=== PATIENT | male | born 1940 | race Caucasian/White ===

== ENCOUNTER 2017-03-17 07:46 | Inpatient (IN) | payer OTHER, MEDICARE ==
[~2017-03-17 07:46] MED LIST: Dermabond Prineo 1 Tube ONE
[2017-03-17] MEDS: Lactated Ringers 1,000 ML IV SCH ×3 (08:51→20:07)
[2017-03-17] MEDS ORDERED: Lidocaine 2% 5 ML SDV ONE ×2 (09:16→09:22)
[2017-03-17] MEDS ORDERED: Propofol 200 MG/20 ML SDV ONE ×2 (09:16→09:20)
[2017-03-17] MEDS ORDERED: fentaNYL 250 MCG/5 ML SDV ONE (09:17)
[2017-03-17] MEDS ORDERED: Midazolam 1 MG/ML 2 ML SDV ONE (09:17)
[2017-03-17] MEDS ORDERED: Ketorolac 30 MG/ML SDV ONE (09:22)
[2017-03-17] MEDS ORDERED: Ondansetron 4 MG/2 ML SDV ONE (09:22)
[2017-03-17] MEDS ORDERED: Neostigmine Methylsulfate 1 MG/ML 5 ML Syringe ONE (09:22)
[2017-03-17] MEDS ORDERED: ePHEDrine 50 MG/ML SDV ONE (09:33)
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
[2017-03-17] MEDS ORDERED: ceFAZolin 2 GM in Premix Bag 1 BAG IV ONE (10:00)
[2017-03-17] MEDS ORDERED: fentaNYL 100 MCG/2 ML SDV IVPUSH PRN (10:54)
[2017-03-17] MEDS ORDERED: HYDROmorphone 2 MG/ML Syringe IVPUSH ONE (11:20)
--- NOTE | 2017-03-17 11:46 | PCM.OPNOTE ---
- General Post-Op/Procedure Note Date of Surgery/Procedure: 03/17/17 Operative Procedure(s): right anterior total hip arthroplasty Findings: severe OA Pre Op Diagnosis: right hip severe osteoarthritis Post-Op Diagnosis: same Anesthesia Technique: General ET Tube, Spinal Primary Surgeon: Zenon Valdivia Mai Pilot Boat Operator: Raina Cochran Pathology: femoral head EBL in mLs: 300 Complications: none Condition: Good
[2017-03-17] MEDS ORDERED: Morphine 10 MG/ML Syringe IVPUSH PRN (11:54)
[2017-03-17] MEDS ORDERED: Acetaminophen/HYDROcodone 325-5 MG Tab PO PRN (11:54)
[2017-03-17] MEDS ORDERED: Ondansetron 4 MG/2 ML SDV IV PRN (11:54)
[2017-03-17] MEDS ORDERED: Bisacodyl 10 MG Supp RECTAL PRN (11:54)
[2017-03-17] MEDS ORDERED: diphenhydrAMINE 25 MG Cap PO PRN (11:54)
--- NOTE | 2017-03-17 12:39 | PCM.POSTAN ---
POST ANESTHESIA ASSESSMENT - MENTAL STATUS Mental Status: Alert, Oriented - VITAL SIGNS Pulse Rate: 89 SaO2: 97 (room air) Resp Rate: 13 Blood Pressure: 118/67 - RESPIRATORY Respiratory Status: respiratory rate WNL, Airway Patent, O2 Saturation Stable - CARDIOVASCULAR CV Status: Pulse Rate WNL, Blood Pressure Stable - GASTROINTESTINAL GI Status: No Symptoms - PAIN Pain Score: 0 - POST OP HYDRATION Hydration Status: Adequate & Stable
--- NOTE | 2017-03-17 13:50 | OR ---
SURGEON: Zenon Jiménez MD DATE OF PROCEDURE: 03/17/2017 RETAIL MANAGER IN TRAINING: WENDY Harris PREOPERATIVE DIAGNOSIS: Right hip severe osteoarthritis. POSTOPERATIVE DIAGNOSES: Right hip severe osteoarthritis. OPERATION PERFORMED: Right anterior total hip arthroplasty. ANESTHESIA: Spinal and general. COMPLICATIONS: None. ESTIMATED BLOOD LOSS: 300 mL. SPECIMENS: Femoral head. IMPLANT: Arturo Continuum trabecular metal shell with cluster holes, 60 mm outer diameter, the Vicacit-E neutral liner, 36 mm inner diameter, one 6.5 x 30 mm length bone screw, M/L Taper, cementless standard offset size 13.5 femoral stem, BIOLOX delta ceramic femoral head 36 mm diameter, 0 neck length. WENDY Cochran was instrumental in case with retraction, closing and reducing the hip. INDICATIONS: The patient is a 76-year-old male with severe hip arthritis. He has previously undergone left hip replacement. He wished to undergo total hip replacement. He has failed conservative management due to modification therapy and has chronic pain on a daily basis hindering activities and ADLs. He understands the risks, benefits, potential complications of the procedure including, but not limited to infection, neurovascular injury, continued pain, DVT, PE, stroke, TX, , dislocation, fracture, leg-length discrepancy, deep infection, and he wished to proceed. DESCRIPTION OF PROCEDURE: The patient was seen in the preoperative area. Operative site was marked. The patient was transferred to the operating room. Spinal anesthetic was given. He was placed supine on the Marino table and general anesthesia was induced. Endotracheal tube was placed. He received preop antibiotics with Ancef and also 2 g of TXA. Legs were placed in leg bars with narrow perineal post and the right hip was prepped and draped in usual sterile fashion using alcohol followed by ChloraPrep with Ioban covering. A formal time-out was taken, identifying the correct patient, procedure, and extremity. A 10 cm incision starting just laterally ASIS going obliquely down. Femur was made. Dissection was carried down to subcutaneous tissues. Hemostasis was obtained. The fascia overlying the TFL was opened. The interval between TFL and sartorius and deep between the abductors and rectus was opened. A deep German tractor was placed. The vastus lateralis fascia was opened and the anterior vessels were coagulated. The capsule was held and tagged with two fiber wires and retractors placed deep in the hip joint. The neck was cut with saddle region about 1 to 1.5 cm above the lesser trochanter and the head was removed. There was severe osteoarthritis with large osteophytes obliterating the entire hip, but no cartilage remaining. Anterior and posterior retractors were placed. Inferior capsule was released and the iliopsoas tendon was left alone. The remnants of the labrum primarily anterior and far posterior inferiorly were removed as well as some of the inferior capsule that was thickened. The fovea was completely obliterated with osteophytes. Acetabular line and osteophytes anteriorly were also removed. The head measured approximately 53 to 55 mm. The bed was planed under fluoroscopic control to make sure the pelvis was level and then sequential reaming from 53 mm up to 59 mm was performed. This had excellent fit and fill of the hip, and then under fluoroscopic control after irrigating continuum trabecular shell cluster holes, the screw straight superior was impacted in 10 degrees of anteversion and 45 degrees of abduction and has had excellent press fit. Once straight superior bone screw was placed after drilling and then after irrigating and drying the neutral liner was impacted. Attention was then paid to the femur. The leg was externally rotated, medial capsule was released. He was then abducted and extended. Femoral lift was placed. The superior capsule obturator internus and piriformis were released taking care to preserve the obturator externus. The central canal finder was utilized and sequential broaching based on preoperative templating with M/L Taper size standard was performed with a starter rasp up to size 13.5. Calcar planer was utilized to lower it about 2-3 mm. Trial was reduced and with printed overlay technique with fluoroscopy on the other hip, it showed equal leg lengths, but the offset to be slightly decreased, which was designed because the other hip had much higher increased offset. There was no Shuck to the hip and was stable in range of motion. Hip was then dislocated. The trial component was removed. The hip was irrigated. Standard offset, size 13.5, was impacted following the [place] version. It had excellent press-fit going down the same length as the trial and so a 36 mm diameter head and 0 neck length was impacted. Hip was then reduced. Printed overlay technique once again showed the same with equal leg lengths and slightly decreased offset. The two tag sutures were tied together. The hip was irrigated again and the fascia closed with #1 Vicryl. Subcutaneous tissues were closed with 2-0 Stratra-Fix. Skin was closed with a running 4-0 Monocryl with Dermabond tape and Aquacel dressing was placed. The patient was extubated to the operating room and transferred to recovery room in stable condition. Sponge and needle counts were correct at the end of the case. There were no complications. PLAN: The patient will be given postoperative protocol with weightbearing as tolerated and aspirin for DVT prophylaxis. RAMEZ BANUELOS /[id number]
[2017-03-17] MEDS: Acetaminophen 500 MG Tab PO PRN (16:14)
[2017-03-17] MEDS: ceFAZolin 2 GM in Premix Bag 1 BAG IV SCH (18:47)
[2017-03-17] MEDS ORDERED: Sodium Chloride 0.9% 2.5 ML Syringe FLUSH PRN (19:47)
[2017-03-17] MEDS ORDERED: Sodium Chloride 0.9% 10 ML Syringe FLUSH PRN (19:47)
[2017-03-17] MEDS: Docusate Sodium 100 MG Cap PO SCH (20:05)
[2017-03-18] MEDS: ceFAZolin 2 GM in Premix Bag 1 BAG IV SCH (01:54)
--- NOTE | 2017-03-18 07:17 | PCM.SN ---
- Free Text/Narrative Note: subjective: hip doing very well. able to ambulate without help to bathroom. has ambulated in halls. is having difficulty urinating and had to be straight cathed. tolerating PO well. pain controlled with tylenol. objective: afebrile, vital signs stable dressing clean/dry/intact with no drainage. minimal swelling in thigh. normal sensation and motor distal with no peripheral edema. palp pedal pulse HGB 11.9 A/P: POD #1 right MARIYA - full weight bearing with walker, PT - aspirin for DVT prophylaxis - to home today if able to urinate
[2017-03-18] MEDS ORDERED: ATENOLOL PO SCH (09:00)
[2017-03-18] MEDS ORDERED: CHLORTHALIDONE PO SCH (09:00)
[2017-03-18] MEDS: Aspirin 325 MG Tab PO SCH ×2 (09:14→20:23)
[2017-03-18] MEDS: Acetaminophen 500 MG Tab PO PRN (09:14)
[2017-03-18] MEDS: Chlorthalidone 25 MG Tab PO SCH (09:14)
[2017-03-18] MEDS: Atenolol 50 MG Tab PO SCH (09:14)
[2017-03-18] MEDS: Docusate Sodium 100 MG Cap PO SCH ×2 (09:14→20:23)
--- NOTE | 2017-03-18 15:30 | PCM48HPAN ---
Post Anesthesia Note - EVALUATION WITHIN 48HRS OF ANESTHETIC Vital Signs in Normal Range: Yes Patient Participated in Evaluation: Yes Respiratory Function Stable: Yes Airway Patent: Yes Cardiovascular Function Stable: Yes Hydration Status Stable: Yes Pain Control Satisfactory: Yes Nausea and Vomiting Control Satisfactory: Yes Mental Status Recovered: Yes
[2017-03-18] MEDS: Aluminum Hydroxide/Magnesium Hydroxide/Simethicone Susp 30 ML Cup PO PRN ×2 (15:37→22:10)
[2017-03-19] MEDS: Chlorthalidone 25 MG Tab PO SCH (08:28)
[2017-03-19] MEDS: Docusate Sodium 100 MG Cap PO SCH (08:28)
[2017-03-19] MEDS: Acetaminophen 500 MG Tab PO PRN (08:28)
[2017-03-19 08:30] VITALS: BP 121/65
[2017-03-19] MEDS: Atenolol 50 MG Tab PO SCH (08:30)
[2017-03-19] MEDS: Aspirin 325 MG Tab PO SCH (08:30)
--- NOTE | 2017-03-19 08:44 | PCM.SN ---
- Free Text/Narrative Note: subjective: hip doing very well. He is able to ambulate with minimal issues. He has been only able to urinate small amount and feels retention and difficulty starting to void. He was straight cathetered yesterday and Newton was placed overnight. objective: afebrile, vital signs stable dressing clean/dry/intact with no drainage. minimal swelling in thigh. normal sensation and motor distal with no peripheral edema. palp pedal pulse Newton in place with normal appearing clear urine HGB 11.4 A/P: POD #2 right MARIYA with urinary retention - full weight bearing with walker, PT - aspirin for DVT prophylaxis - Dr. Barr was called who recommended leaving the Newton in and he'll follow- up with the patient in 2 days in clinic. - To home today
--- NOTE | 2017-03-19 08:46 | PCM.DCSUM1 ---
Discharge Summary - Hospital Course Brief History: Patient is admitted for elective right total hip arthroplasty - Discharge Data Discharge Date: 03/19/17 Discharge Disposition: Home, Self-Care 01 Condition: Good - Patient Summary/Data Operative Procedure(s) Performed: right anterior total hip arthroplasty Consults: Consultations 03/17/17 11:54 PT Evaluation and Treatment [CONS] Routine Hospital Course: Patient was admitted for total of arthroplasty. Postoperatively he was managed for her pain was controlled and his diet was advanced. He had minimal pain. He was kept on aspirin for DVT prophylaxis. He had difficulty urinating and over the course of 2 days he was straight catheter twice and a Newton was placed. The urologist was consulted who recommended leaving the Newton in and follow-up in his clinic in 2 days. Patient was was subsequently discharged with weightbearing as tolerated on aspirin for DVT prophylaxis. His hemoglobin remained stable throughout the hospitalization - Patient Instructions Diet: Usual Diet as Tolerated Activity: Apply Ice, Full Weight Bearing Driving: Do Not Drive Showering/Bathing: May Shower Wound/Incision Care: Do NOT Change Dressing Notify Provider of: Fever, Swelling and Redness, Drainage Other/Special Instructions: Leave Newton in and drain bag as needed - Discharge Plan Prescriptions/Med Rec: Acetaminophen/HYDROcodone [Stella 325-5 MG] 1 - 2 tab PO Q4H PRN #60 tablet PRN Reason: Pain Aspirin [Ecotrin] 325 mg PO BID #60 tab.ec Docusate Sodium [Colace] 100 mg PO BID #30 cap Home Medications: Home Meds Aspirin 1 - 2 tab PO ASDIRECTED PRN 03/16/17 [History] Atenolol/Chlorthalidone [Tenoretic 50 Tablet] 1 tab PO DAILY 03/16/17 [History] Multivitamin [Multivitamins] 1 tab PO DAILY 03/16/17 [History] Acetaminophen/HYDROcodone [Stella 325-5 MG] 1 - 2 tab PO Q4H PRN #60 tablet 03/19 [Rx] Aspirin [Ecotrin] 325 mg PO BID #60 tab.ec 03/19/17 [Rx] Docusate Sodium [Colace] 100 mg PO BID #30 cap 03/19/17 [Rx] Patient Handouts: Acetaminophen; Hydrocodone tablets or capsules, Total Hip Replacement, Care After, Aspirin, ASA oral tablets, Docusate capsules Referrals: Sumit Barr MD [Physician] - 03/21/17 1:00 pm Raina Cochran PA [Physician Flanging Machine Operator] - 03/29/17 9:00 am - Discharge Summary/Plan Comment DC Time >30 min.: No - Patient Data Vitals - Most Recent: Last Vital Signs Temp 36.8 C 03/19/17 08:00 Pulse 85 03/19/17 08:30 Resp 16 03/19/17 08:00 BP 121/65 03/19/17 08:30 Pulse Ox 94 L 03/19/17 08:00 Weight - Most Recent: 97.522 kg I&O - Last 24 hours: Intake & Output 03/18/17 03/19/17 03/19/17 22:59 06:59 14:59 Intake Total 586 150 Output Total 1575 1100 Balance -989 -950 Lab Results - Last 24 hrs: Laboratory Results - last 24 hr 03/19/17 Range/Units 04:17 Hgb 11.4 L (13.0-17.0) g/dL Hct 34.7 L (38.0-50.0) % Med Orders - Current: Current Medications Acetaminophen (Tylenol Extra Strength) 0 mg PO Q6H PRN PRN Reason: pain Last Admin: 03/19/17 08:28 Dose: 500 mg Hydrocodone Bitart/Acetaminophen (Stella 325-5 Mg) 1 - 2 tab PO Q4H PRN PRN Reason: Pain Al Hydroxide/Mg Hydroxide (Mag-Al Plus) 30 ml PO Q4H PRN PRN Reason: indigestion Last Admin: 03/18/17 22:10 Dose: 30 ml Aspirin (Aspirin) 325 mg PO BID [facility] Last Admin: 03/19/17 08:30 Dose: 325 mg Atenolol (Tenormin) 50 mg PO DAILY [facility] Last Admin: 03/19/17 08:30 Dose: 50 mg Bisacodyl (Dulcolax) 10 mg RECTAL DAILY PRN PRN Reason: Constipation Chlorthalidone (Chlorthalidone) 25 mg PO DAILY [facility] Last Admin: 03/19/17 08:28 Dose: 25 mg Diphenhydramine HCl (Benadryl) 25 - 50 mg PO Q6H PRN PRN Reason: Itching Docusate Sodium (Colace) 100 mg PO BID [facility] Last Admin: 03/19/17 08:28 Dose: 100 mg Lactated Ringer's (Ringers, Lactated) 1,000 mls @ 100 mls/hr IV ASDIRECTED [facility] Last Admin: 03/17/17 20:07 Dose: 100 mls/hr Morphine Sulfate (Morphine) 1 - 3 mg IVPUSH Q3H PRN PRN Reason: Pain Ondansetron HCl (Zofran) 4 mg IV Q6HR PRN PRN Reason: NAUSEA/VOMITING Sodium Chloride (Saline Flush) 10 ml FLUSH ASDIRECTED PRN PRN Reason: Keep Vein Open Sodium Chloride (Saline Flush) 2.5 ml FLUSH ASDIRECTED PRN PRN Reason: Keep Vein Open Discontinued Medications Ephedrine Sulfate (Ephedrine Sulfate) Confirm Administered Dose 50 mg .ROUTE .STK-MED ONE Stop: 03/17/17 09:34 Fentanyl (Sublimaze) Confirm Administered Dose 250 mcg .ROUTE .STK-MED ONE Stop: 03/17/17 09:18 Fentanyl (Sublimaze) 50 mcg IVPUSH Q5M PRN PRN Reason: Pain (severe 7-10) Stop: 03/18/17 10:54 Glycopyrrolate () Confirm Administered Dose 1 mg .ROUTE .STK-MED ONE Stop: 03/17/17 09:23 Hydromorphone HCl (Dilaudid) 0 mg IVPUSH ONETIME ONE Stop: 03/17/17 11:21 Last Admin: 03/17/17 16:35 Dose: Not Given Cefazolin Sodium/Dextrose 2 gm (/ Premix) 50 mls @ 50 mls/hr IV ONETIME ONE Stop: 03/17/17 10:59 Last Admin: 03/17/17 16:34 Dose: Not Given Cefazolin Sodium/Dextrose 2 gm (/ Premix) 50 mls @ 100 mls/hr IV Q8H [facility] Stop: 03/18/17 02:29 Last Admin: 03/18/17 01:54 Dose: 100 mls/hr Ketorolac Tromethamine (Toradol) Confirm Administered Dose 30 mg .ROUTE .STK- MED ONE Stop: 03/17/17 09:23 Lidocaine (Xylocaine-Mpf 2%) Confirm Administered Dose 10 ml .ROUTE .STK-MED ONE Stop: 03/17/17 09:17 Lidocaine (Xylocaine-Mpf 2%) Confirm Administered Dose 5 ml .ROUTE .STK-MED ONE Stop: 03/17/17 09:23 Midazolam HCl (Versed 1 Mg/Ml) Confirm Administered Dose 2 mg .ROUTE .STK-MED ONE Stop: 03/17/17 09:18 Neostigmine Methylsulfate (Neostigmine) Confirm Administered Dose 5 mg .ROUTE .STK-MED ONE Stop: 03/17/17 09:23 Non-Formulary Medication (Atenolol/Chlorthalidone [Tenoretic 50 Tablet]) 1 tab PO DAILY BERNABE Octyl Cyanoacrylate (Dermabond Prineo) 1 applic .ROUTE .STK-MED ONE Stop: 03/17/17 07:25 Ondansetron HCl (Zofran) Confirm Administered Dose 4 mg .ROUTE .STK-MED ONE Stop: 03/17/17 09:23 Propofol (Diprivan 20 Ml) Confirm Administered Dose 400 mg .ROUTE .STK-MED ONE Stop: 03/17/17 09:17 Propofol (Diprivan 20 Ml) Confirm Administered Dose 200 mg .ROUTE .STK-MED ONE Stop: 03/17/17 09:21 Rocuronium [place] (Zemuron) Confirm Administered Dose 50 mg .ROUTE .STK-MED ONE Stop: 03/17/17 09:23 Tranexamic Acid (Cyklokapron) 2,000 mg IV ONETIME ONE Stop: 03/17/17 10:01 Last Admin: 03/17/17 16:35 Dose: Not Given Tranexamic Acid (Cyklokapron) Confirm Administered Dose 2,000 mg .ROUTE .STK- MED ONE Stop: 03/17/17 07:29 *Q Meaningful Use (DIS) - VTE *Q VTE Criteria *Q: - Stroke *Q Stroke Criteria *Q: - AMI *Q AMI Criteria *Q:
[2017-03-19] MEDS: Aluminum Hydroxide/Magnesium Hydroxide/Simethicone Susp 30 ML Cup PO PRN (11:18)
--- NOTE | 2017-03-21 13:19 | CR ---
EXAMINATION: Right hip HISTORY: MARIYA COMPARISON: 01/10/2017 TECHNIQUE: 3 fluoroscopic images provided FINDINGS/IMPRESSION: Operative control films demonstrate placement of right total hip hardware in go od position and alignment.
== END 2017-03-19 11:30 | disposition home or self-care (01) | DRG 470 ==
LOC: MW.MS 07:46
PROVIDERS: ADMIT Orthopaedic Surgery; ATTEND Orthopaedic Surgery
PROC: 0SR903A Replacement of Right Hip Joint with Ceramic Synthetic Substitute, Uncemented, Open Approach (ICD-10-PCS; principal; 2017-03-17)
DX: M16.11 Unilateral primary osteoarthritis, right hip (principal); R33.8 Other retention of urine; I10 Essential (primary) hypertension; Z90.81 Acquired absence of spleen; Z87.891 Personal history of nicotine dependence
CPT/HCPCS: 01214; 36415; 76000; 76000-26; 85014; 85018; 86850; 86900; 86901; 88305; 88311; 97110-GP; 97161-GP; 97530-GP; A9270-GY; C1713; C1776; J0690; J1885; J2250; J2405; J2704; J3010; J7120

== ENCOUNTER 2021-11-12 10:53 | Emergency (ER) | payer OTHER, MEDICARE ==
[2021-11-12] MEDS ORDERED: Furosemide 40 MG/4 ML VIAL IVPUSH STA (11:02)
[2021-11-12 11:47] LABS: BLOOD UREA NITROGEN,BUN 17 mg/dL (7.0-18.0); CARBON DIOXIDE,CO2 27.5 mmol/L (21.0-32.0); CHLORIDE,CL 105 mmol/L (98-107); GLUCOSE RANDOM 100 mg/dL (74-106); POTASSIUM,K 4.3 mmol/L (3.5-5.1); SODIUM,NA 142 mmol/L (136-148)
[2021-11-12 12:43] VITALS: BP 132/67; PULSE 104
== END 2021-11-12 12:28 | disposition home or self-care (01) ==
LOC: MW.ED 10:53
DX: R06.02 Shortness of breath (principal); I11.0 Hypertensive heart disease with heart failure; I50.9 Heart failure, unspecified; K21.9 Gastro-esophageal reflux disease without esophagitis; Z79.899 Other long term (current) drug therapy
CPT/HCPCS: 36415; 71045; 80053; 81001; 83880; 84484; 85025; 93005; 96374; 99285; J1940

== ENCOUNTER 2023-03-14 08:24 | Observation (INO) | payer OTHER ==
[2023-03-14] MEDS ORDERED: Naloxone 0.4 MG/ML SDV IVPUSH PRN (08:25)
[2023-03-14] MEDS ORDERED: Sodium Chloride 0.9% 10 ML Syringe FLUSH PRN (08:25)
[2023-03-14] MEDS ORDERED: Sodium Chloride 0.9% 2.5 ML Syringe FLUSH PRN (08:25)
[2023-03-14] MEDS: Morphine 4 MG/ML Syringe IVPUSH ONE ×2 (08:38→08:40)
[2023-03-14 08:51] LABS: BASOPHILS ABSOLUTE AUTO 0.1 K/uL (0.0-0.1); BASOPHILS PERCENT AUTO 0.4 % (0.0-1.5); EOSINOPHILS ABSOLUTE AUTO 0.2 K/uL (0.0-0.7); EOSINOPHILS PERCENT AUTO 1.8 % (0.0-7.0); HEMATOCRIT 39.7 % (38.0-50.0); HEMOGLOBIN 13.9 g/dL (13.0-17.0); LYMPHOCYTES ABSOLUTE AUTO 2.2 K/uL (0.6-2.4); LYMPHOCYTES PERCENT AUTO 19.7 % (16.0-40.0); MEAN CORPUSCULAR HEMOGLOBIN 31.4 pg (27.0-32.0); MEAN CORPUSCULAR VOLUME 89.6 fL (80.0-98.0); MONOCYTES ABSOLUTE AUTO 1.3 K/uL (0.0-0.8); MONOCYTES PERCENT AUTO 11.3 % (0.0-15.0); NEUTROPHILS ABSOLUTE AUTO 7.5 K/uL (1.4-5.7); NEUTROPHILS PERCENT AUTO 66.8 % (48.0-80.0); NRBC ABSOLUTE 0 K/uL; PLATELET COUNT,PLT 279 K/uL (150-400); RED BLOOD CELL COUNT 4.43 M/uL (4.50-5.90); WHITE BLOOD CELL COUNT,WBC 11.29 K/uL (4.0-11.0)
[2023-03-14 09:13] LABS: LACTIC ACID 1.8 mmol/L (0.4-2.0)
[2023-03-14 09:22] LABS: A/G RATIO 0.7 (0.9-1.6); ALBUMIN 3.5 g/dL (3.4-5.0); BILIRUBIN TOTAL 1.2 mg/dL (0.2-1.0); CALCIUM 9.9 mg/dL (8.5-10.1); CARBON DIOXIDE,CO2 31.3 mmol/L (21.0-32.0); CREATININE 1.7 mg/dL (0.8-1.3); EST CRCL DRUG DOSING (CG) 35.19 mL/min; MAGNESIUM 2.4 mg/dL (1.8-2.4); PROTEIN TOTAL,TP 8.4 g/dL (6.4-8.2)
[2023-03-14 09:33] LABS: INR 1.02 (0.86-1.11)
[2023-03-14] MEDS ORDERED: Potassium Chloride 10% 20 MEQ/15 ML Soln 15 ML UD Cup PO ONE (09:50)
[2023-03-14] MEDS ORDERED: Sodium Chloride 0.9% 500 ML IV ONE (10:00)
[2023-03-14] MEDS: Potassium Chloride 100 ML IV SCH ×2 (10:07→12:18)
[2023-03-14] MEDS ORDERED: Sodium Chloride 0.9% 500 ML IV SCH (10:15)
[2023-03-14] MEDS ORDERED: Lidocaine 4% 1 each Patch TOP STA (11:58)
[2023-03-14] MEDS ORDERED: Acetaminophen 325 MG Tab PO PRN (13:11)
[2023-03-14] MEDS ORDERED: oxyCODONE 5 MG Tab PO PRN (13:11)
[2023-03-14] MEDS ORDERED: Docusate Sodium 100 MG Cap PO PRN (13:11)
[2023-03-14] MEDS ORDERED: Polyethylene Glycol 3350 Powder 17 GM Packet PO PRN (13:11)
[2023-03-14] MEDS ORDERED: Ondansetron 4 MG Tab.DIS PO PRN (13:11)
[2023-03-14] MEDS: Enoxaparin 40 MG/0.4 ML Syringe SUBCUT SCH (15:15)
[2023-03-14] MEDS: Sodium Chloride 0.9% 1,000 ML IV SCH (16:29)
[2023-03-14 17:15] LABS: CALCIUM 9.1 mg/dL (8.5-10.1); CARBON DIOXIDE,CO2 36.4 mmol/L (21.0-32.0); CREATININE 1.6 mg/dL (0.8-1.3); EST CRCL DRUG DOSING (CG) 33.85 mL/min; POTASSIUM,K 2.5 mmol/L (3.5-5.1)
[2023-03-14] MEDS: Potassium Chloride 20 MEQ in Premix Bag 1 BAG IV SCH ×3 (19:13→23:59)
[2023-03-15] MEDS ORDERED: Ibuprofen 400 MG Tab PO PRN (00:54)
[2023-03-15] MEDS: Potassium Chloride 20 MEQ in Premix Bag 1 BAG IV SCH ×5 (02:10→14:30)
[2023-03-15] MEDS ORDERED: Benzocaine/Cetylpyridinium/Menthol Lozenge MUCMEM PRN (03:42)
[2023-03-15 05:48] LABS: BASOPHILS PERCENT AUTO 0.3 % (0.0-1.5); EOSINOPHILS ABSOLUTE AUTO 0.2 K/uL (0.0-0.7); EOSINOPHILS PERCENT AUTO 2.4 % (0.0-7.0); HEMOGLOBIN 11.7 g/dL (13.0-17.0); LYMPHOCYTES PERCENT AUTO 22.5 % (16.0-40.0); MEAN CORPUSCULAR HEMOGLOBIN 30.6 pg (27.0-32.0); MEAN CORPUSCULAR HGB CONC 33.4 g/dL (31.0-37.0); MEAN CORPUSCULAR VOLUME 91.6 fL (80.0-98.0); MONOCYTES ABSOLUTE AUTO 1.1 K/uL (0.0-0.8); MONOCYTES PERCENT AUTO 12.3 % (0.0-15.0); NEUTROPHILS ABSOLUTE AUTO 5.7 K/uL (1.4-5.7); NEUTROPHILS PERCENT AUTO 62.5 % (48.0-80.0); NRBC ABSOLUTE 0 K/uL; PLATELET COUNT,PLT 255 K/uL (150-400); RED BLOOD CELL COUNT 3.82 M/uL (4.50-5.90); WHITE BLOOD CELL COUNT,WBC 9.08 K/uL (4.0-11.0)
[2023-03-15 06:10] LABS: CARBON DIOXIDE,CO2 32.6 mmol/L (21.0-32.0); CREATININE 1.4 mg/dL (0.8-1.3); EST CRCL DRUG DOSING (CG) 38.69 mL/min; POTASSIUM,K 2.8 mmol/L (3.5-5.1)
[2023-03-15] MEDS: Sodium Chloride 0.9% 1,000 ML IV SCH (06:19)
[2023-03-15] MEDS ORDERED: Potassium Chloride 20 MEQ Tab.ER PO ONE (07:59)
[2023-03-15] MEDS: Potassium Chloride 20 MEQ Tab.ER PO SCH (08:08)
[2023-03-15] MEDS ORDERED: Sodium Chloride 0.9% 750 ML IV ONE (10:15)
[2023-03-15] MEDS: Multivitamin Tab PO SCH (10:31)
[2023-03-15] MEDS: Enoxaparin 40 MG/0.4 ML Syringe SUBCUT SCH (12:28)
[2023-03-15] MEDS: Aspirin 325 MG Tab.EC PO SCH (20:20)
[2023-03-16 08:31] LABS: CALCIUM 9.5 mg/dL (8.5-10.1); CARBON DIOXIDE,CO2 32.8 mmol/L (21.0-32.0); CREATININE 1.2 mg/dL (0.8-1.3); EST CRCL DRUG DOSING (CG) 45.14 mL/min; MAGNESIUM 2.3 mg/dL (1.8-2.4); POTASSIUM,K 3.7 mmol/L (3.5-5.1)
[2023-03-16] MEDS ORDERED: Furosemide 40 MG Tab PO SCH (09:00)
[2023-03-16] MEDS ORDERED: Furosemide 20 MG Tab PO SCH (09:00)
[2023-03-16] MEDS ORDERED: LYCOPENE 10 MG PO SCH (09:00)
[2023-03-16 09:01] VITALS: BP 130/60; PULSE 99
[2023-03-16] MEDS: Potassium Chloride 20 MEQ Tab.ER PO SCH (09:10)
[2023-03-16] MEDS: Multivitamin Tab PO SCH (09:11)
[2023-03-16] MEDS: Aspirin 325 MG Tab.EC PO SCH (09:11)
== END 2023-03-16 12:44 | disposition home or self-care (01) ==
LOC: MW.ED 08:24 → MW.MS 12:51
PROVIDERS: ADMIT Hospitalist; ATTEND Hospitalist
DX: E87.6 Hypokalemia (principal); N17.9 Acute kidney failure, unspecified; S82.892 Other fracture of left lower leg; I11.0 Hypertensive heart disease with heart failure; I50.9 Heart failure, unspecified; Z79.899 Other long term (current) drug therapy; Z79.82 Long term (current) use of aspirin; K21.9 Gastro-esophageal reflux disease without esophagitis; M19.90 Unspecified osteoarthritis, unspecified site
CPT/HCPCS: 36415; 71045; 73610; 73630; 73700; 80048; 80053; 83605; 83735; 83880; 84100; 84132; 85025; 85610; 85730; 93971; 96361; 96365; 96366; 96372; 99285; A9270; G0378; J1650; J3480; J3490; J7030; J7040; 93010; 99222; 99232; 99239; J2270

== ENCOUNTER 2023-04-11 23:24 | Observation (INO) | payer OTHER, MEDICARE ==
[2023-04-11] MEDS ORDERED: VANCOmycin 2 GM/400 ML 400 ML IV ONE (23:45)
[2023-04-12 00:04] LABS: BASOPHILS ABSOLUTE AUTO 0.1 K/uL (0.0-0.1); BASOPHILS PERCENT AUTO 0.5 % (0.0-1.5); EOSINOPHILS ABSOLUTE AUTO 0.4 K/uL (0.0-0.7); EOSINOPHILS PERCENT AUTO 2.4 % (0.0-7.0); HEMATOCRIT 37.3 % (38.0-50.0); HEMOGLOBIN 12.5 g/dL (13.0-17.0); LYMPHOCYTES ABSOLUTE AUTO 2.6 K/uL (0.6-2.4); LYMPHOCYTES PERCENT AUTO 17.5 % (16.0-40.0); MEAN CORPUSCULAR HEMOGLOBIN 31.3 pg (27.0-32.0); MEAN CORPUSCULAR HGB CONC 33.5 g/dL (31.0-37.0); MEAN CORPUSCULAR VOLUME 93.3 fL (80.0-98.0); MONOCYTES ABSOLUTE AUTO 1.3 K/uL (0.0-0.8); MONOCYTES PERCENT AUTO 8.6 % (0.0-15.0); NEUTROPHILS ABSOLUTE AUTO 10.6 K/uL (1.4-5.7); NRBC ABSOLUTE 0 K/uL; PLATELET COUNT,PLT 265 K/uL (150-400); WHITE BLOOD CELL COUNT,WBC 14.87 K/uL (4.0-11.0)
[2023-04-12 00:15] LABS: PTT,PARTIAL THROMBOPLSTIN TIME 27.2 SEC (23.9-30.7)
[2023-04-12 00:26] LABS: A/G RATIO 0.7 (0.9-1.6); ALBUMIN 3.2 g/dL (3.4-5.0); BILIRUBIN TOTAL 0.4 mg/dL (0.2-1.0); C-REACTIVE PROTEIN 2.5 mg/dL (0.00-0.90); CALCIUM 9.9 mg/dL (8.5-10.1); CARBON DIOXIDE,CO2 29.2 mmol/L (21.0-32.0); CREATININE 1.3 mg/dL (0.8-1.3); EST CRCL DRUG DOSING (CG) 46.01 mL/min; MAGNESIUM 1.9 mg/dL (1.8-2.4); POTASSIUM,K 4.1 mmol/L (3.5-5.1)
[2023-04-12] MEDS ORDERED: Acetaminophen 500 MG Tab PO ONE (00:48)
[2023-04-12] MEDS ORDERED: Sodium Chloride 0.9% 500 ML IV ONE (00:49)
[2023-04-12] MEDS ORDERED: Enoxaparin 100 MG/1 ML Syringe SUBCUT STA (00:59)
[2023-04-12] MEDS ORDERED: Ibuprofen 400 MG Tab PO ONE (02:16)
[2023-04-12] MEDS ORDERED: Ondansetron 4 MG/2 ML SDV IVPUSH PRN (03:31)
[2023-04-12] MEDS ORDERED: Albuterol/Ipratropium 3.0-0.5 MG/3 ML Neb Soln NEB PRN (03:31)
[2023-04-12] MEDS ORDERED: Sodium Chloride 0.9% 2.5 ML Syringe FLUSH PRN (03:31)
[2023-04-12] MEDS ORDERED: Sodium Chloride 0.9% 10 ML Syringe FLUSH PRN (03:31)
[2023-04-12] MEDS ORDERED: Polyethylene Glycol 3350 Powder 17 GM Packet PO PRN (03:31)
[2023-04-12] MEDS ORDERED: Acetaminophen 325 MG Tab PO PRN (03:31)
[2023-04-12] MEDS ORDERED: Enoxaparin 40 MG/0.4 ML Syringe SUBCUT SCH (03:45)
[2023-04-12] MEDS: Piperacillin/Tazobactam 3.375 GM in Sodium Chloride 0.9% 100 ML IV SCH ×3 (05:24→18:51)
[2023-04-12 06:19] LABS: BASOPHILS ABSOLUTE AUTO 0.1 K/uL (0.0-0.1); BASOPHILS PERCENT AUTO 0.6 % (0.0-1.5); EOSINOPHILS ABSOLUTE AUTO 0.2 K/uL (0.0-0.7); HEMATOCRIT 34.2 % (38.0-50.0); HEMOGLOBIN 11.4 g/dL (13.0-17.0); LYMPHOCYTES ABSOLUTE AUTO 2.2 K/uL (0.6-2.4); LYMPHOCYTES PERCENT AUTO 20.7 % (16.0-40.0); MEAN CORPUSCULAR HGB CONC 33.3 g/dL (31.0-37.0); MEAN CORPUSCULAR VOLUME 92.9 fL (80.0-98.0); MONOCYTES ABSOLUTE AUTO 1.3 K/uL (0.0-0.8); MONOCYTES PERCENT AUTO 11.5 % (0.0-15.0); NEUTROPHILS ABSOLUTE AUTO 7.1 K/uL (1.4-5.7); NEUTROPHILS PERCENT AUTO 65.2 % (48.0-80.0); NRBC ABSOLUTE 0 K/uL; PLATELET COUNT,PLT 216 K/uL (150-400); RED BLOOD CELL COUNT 3.68 M/uL (4.50-5.90); WHITE BLOOD CELL COUNT,WBC 10.84 K/uL (4.0-11.0)
[2023-04-12 06:46] LABS: A/G RATIO 0.7 (0.9-1.6); ALBUMIN 2.5 g/dL (3.4-5.0); BILIRUBIN TOTAL 0.6 mg/dL (0.2-1.0); C-REACTIVE PROTEIN 3.1 mg/dL (0.00-0.90); CALCIUM 8.6 mg/dL (8.5-10.1); CARBON DIOXIDE,CO2 25.7 mmol/L (21.0-32.0); CREATININE 1.2 mg/dL (0.8-1.3); EST CRCL DRUG DOSING (CG) 49.85 mL/min; MAGNESIUM 1.9 mg/dL (1.8-2.4); POTASSIUM,K 3.9 mmol/L (3.5-5.1); PROTEIN TOTAL,TP 6.1 g/dL (6.4-8.2)
[2023-04-12] MEDS ORDERED: Potassium Chloride 10 MEQ Tab.ER PO SCH (08:00)
[2023-04-12] MEDS ORDERED: Furosemide 40 MG Tab PO SCH (09:00)
[2023-04-12] MEDS: Enoxaparin 40 MG/0.4 ML Syringe SUBCUT SCH (09:03)
[2023-04-12] MEDS: Furosemide 80 MG Tab PO SCH (10:06)
[2023-04-12 14:02] LABS: APPEARANCE,URINE CLEAR; BILIRUBIN,URINE NEGATIVE (NEGATIVE); COLOR,URINE YELLOW; GLUCOSE,URINE NEGATIVE (NEGATIVE); KETONES,URINE NEGATIVE (NEGATIVE); LEUKOCYTE ESTERASE,URINE TRACE (NEGATIVE); NITRITE,URINE NEGATIVE (NEGATIVE); OCCULT BLOOD,URINE NEGATIVE (NEGATIVE); PH,URINE 6.5 (5.0-8.0); PROTEIN,URINE NEGATIVE (NEGATIVE); UROBILINOGEN,URINE 0.2 EU/dL (<2.0)
[2023-04-12 14:26] LABS: EPITHELIAL CELLS,URINE RARE (NONE-FEW); RBC,URINE 0-2 (0-2/HPF); WBC,URINE 0-2 (0-5/HPF)
[2023-04-12 14:27] LABS: BACTERIA,URINE RARE (NEGATIVE); MUCUS,URINE MODERATE (NONE-MOD)
[2023-04-13] MEDS: Piperacillin/Tazobactam 3.375 GM in Sodium Chloride 0.9% 100 ML IV SCH ×2 (04:32→11:19)
[2023-04-13 06:08] LABS: BASOPHILS ABSOLUTE AUTO 0.1 K/uL (0.0-0.1); BASOPHILS PERCENT AUTO 0.6 % (0.0-1.5); EOSINOPHILS ABSOLUTE AUTO 0.5 K/uL (0.0-0.7); EOSINOPHILS PERCENT AUTO 5.6 % (0.0-7.0); HEMATOCRIT 36.1 % (38.0-50.0); HEMOGLOBIN 11.6 g/dL (13.0-17.0); LYMPHOCYTES ABSOLUTE AUTO 2.2 K/uL (0.6-2.4); LYMPHOCYTES PERCENT AUTO 26.1 % (16.0-40.0); MEAN CORPUSCULAR HEMOGLOBIN 30.1 pg (27.0-32.0); MEAN CORPUSCULAR HGB CONC 32.1 g/dL (31.0-37.0); MEAN CORPUSCULAR VOLUME 93.5 fL (80.0-98.0); MONOCYTES ABSOLUTE AUTO 0.8 K/uL (0.0-0.8); MONOCYTES PERCENT AUTO 9.5 % (0.0-15.0); NEUTROPHILS PERCENT AUTO 58.2 % (48.0-80.0); NRBC ABSOLUTE 0 K/uL; PLATELET COUNT,PLT 245 K/uL (150-400); RED BLOOD CELL COUNT 3.86 M/uL (4.50-5.90); WHITE BLOOD CELL COUNT,WBC 8.54 K/uL (4.0-11.0)
[2023-04-13 06:29] LABS: C-REACTIVE PROTEIN 10.6 mg/dL (0.00-0.90); CARBON DIOXIDE,CO2 26.2 mmol/L (21.0-32.0); CREATININE 1.2 mg/dL (0.8-1.3); EST CRCL DRUG DOSING (CG) 49.85 mL/min; MAGNESIUM 1.9 mg/dL (1.8-2.4); POTASSIUM,K 3.3 mmol/L (3.5-5.1)
[2023-04-13] MEDS: Furosemide 80 MG Tab PO SCH (08:46)
[2023-04-13] MEDS: Enoxaparin 40 MG/0.4 ML Syringe SUBCUT SCH (08:48)
[2023-04-13] MEDS ORDERED: Potassium Chloride 20 MEQ Tab.ER PO ONE (08:50)
[2023-04-13] MEDS ORDERED: Metolazone 5 MG Tab PO SCH (09:22)
[2023-04-13 12:41] VITALS: BP 120/63; PULSE 98
== END 2023-04-13 12:46 | disposition home or self-care (01) ==
LOC: MW.ED 23:24 → MW.MS 04-12 01:25
PROVIDERS: ADMIT Family Medicine; ATTEND Family Medicine
DX: L03.116 Cellulitis of left lower limb (principal); I11.0 Hypertensive heart disease with heart failure; I50.32 Chronic diastolic (congestive) heart failure; K21.9 Gastro-esophageal reflux disease without esophagitis; Z79.899 Other long term (current) drug therapy
CPT/HCPCS: 36415; 80048; 80053; 80202; 81001; 83605; 83735; 84484; 85025; 85610; 85730; 86140; 87040; 87635; 93005; 93971; 97161; A9270; J1650; J2543; J3370; J3490; J7030; J7050; 93010; 99283; 99285; U0002

== ENCOUNTER 2023-06-08 13:43 | Observation (INO) | payer OTHER, MEDICARE ==
[2023-06-08] MEDS ORDERED: Sodium Chloride 0.9% 10 ML Syringe FLUSH PRN (13:53)
[2023-06-08] MEDS ORDERED: Sodium Chloride 0.9% 2.5 ML Syringe FLUSH PRN (13:53)
[2023-06-08] MEDS ORDERED: Furosemide 40 MG/4 ML VIAL IVPUSH ONE (13:56)
[2023-06-08 14:20] LABS: BASOPHILS ABSOLUTE AUTO 0.05 K/uL (0.00-0.20); BASOPHILS PERCENT AUTO 0.4 % (0.0-1.0); EOSINOPHILS ABSOLUTE AUTO 0.41 K/uL (0.00-0.45); EOSINOPHILS PERCENT AUTO 3.4 % (0.0-6.0); HEMATOCRIT 35.5 % (42.0-52.0); HEMOGLOBIN 11.7 g/dL (14.0-18.0); IMMATURE GRAN ABSOLUTE AUTO 0.05 K/uL (0.00-0.05); IMMATURE GRAN PERCENT AUTO 0.4 % (0.0-0.4); LYMPHOCYTES ABSOLUTE AUTO 2.61 K/uL (1.00-4.80); LYMPHOCYTES PERCENT AUTO 21.8 % (24.0-44.0); MEAN CORPUSCULAR HEMOGLOBIN 29.5 pg (28.0-32.0); MEAN CORPUSCULAR VOLUME 89.6 fL (83.0-99.0); MEAN PLATELET VOLUME 10.4 fL (9.4-12.4); MONOCYTES ABSOLUTE AUTO 1.12 K/uL (0.00-0.80); MONOCYTES PERCENT AUTO 9.4 % (0.0-8.0); NEUTROPHILS ABSOLUTE AUTO 7.71 K/uL (1.80-7.70); NEUTROPHILS PERCENT AUTO 64.6 % (41.0-71.0); PLATELET COUNT,PLT 371 K/uL (150-400); RED BLOOD CELL COUNT 3.96 M/uL (4.52-5.90); WHITE BLOOD CELL COUNT,WBC 11.95 K/uL (3.9-11.3)
[2023-06-08 14:25] LABS: INR 1.02 (0.86-1.11)
[2023-06-08 14:35] LABS: A/G RATIO 0.6 (0.9-1.6); ALBUMIN 2.9 g/dL (3.4-5.0); BILIRUBIN TOTAL 0.4 mg/dL (0.2-1.0); CALCIUM 10.1 mg/dL (8.5-10.1); CREATININE 1.3 mg/dL (0.8-1.3); EST CRCL DRUG DOSING (CG) 43.81 mL/min; PROTEIN TOTAL,TP 7.7 g/dL (6.4-8.2)
[2023-06-08] MEDS ORDERED: Morphine 4 MG/ML Syringe IVPUSH PRN (17:04)
[2023-06-08] MEDS ORDERED: Naloxone 0.4 MG/ML SDV IVPUSH PRN (17:04)
[2023-06-08] MEDS ORDERED: Ondansetron 4 MG/2 ML SDV IVPUSH PRN (18:16)
[2023-06-08] MEDS ORDERED: Acetaminophen 325 MG Tab PO PRN (18:16)
[2023-06-08] MEDS ORDERED: Enoxaparin 40 MG/0.4 ML Syringe SUBCUT SCH (18:30)
[2023-06-08] MEDS: Enoxaparin 40 MG/0.4 ML Syringe SUBCUT SCH (20:30)
[2023-06-09 06:20] LABS: BASOPHILS ABSOLUTE AUTO 0.05 K/uL (0.00-0.20); BASOPHILS PERCENT AUTO 0.5 % (0.0-1.0); EOSINOPHILS ABSOLUTE AUTO 0.48 K/uL (0.00-0.45); EOSINOPHILS PERCENT AUTO 4.3 % (0.0-6.0); HEMATOCRIT 33.6 % (42.0-52.0); HEMOGLOBIN 11.4 g/dL (14.0-18.0); IMMATURE GRAN ABSOLUTE AUTO 0.05 K/uL (0.00-0.05); IMMATURE GRAN PERCENT AUTO 0.5 % (0.0-0.4); LYMPHOCYTES ABSOLUTE AUTO 2.96 K/uL (1.00-4.80); LYMPHOCYTES PERCENT AUTO 26.8 % (24.0-44.0); MEAN CORPUSCULAR HEMOGLOBIN 30.2 pg (28.0-32.0); MEAN CORPUSCULAR HGB CONC 33.9 g/dL (32.0-36.0); MEAN CORPUSCULAR VOLUME 89.1 fL (83.0-99.0); MEAN PLATELET VOLUME 10.5 fL (9.4-12.4); MONOCYTES ABSOLUTE AUTO 0.96 K/uL (0.00-0.80); MONOCYTES PERCENT AUTO 8.7 % (0.0-8.0); NEUTROPHILS ABSOLUTE AUTO 6.54 K/uL (1.80-7.70); NEUTROPHILS PERCENT AUTO 59.2 % (41.0-71.0); PLATELET COUNT,PLT 376 K/uL (150-400); RED BLOOD CELL COUNT 3.77 M/uL (4.52-5.90); WHITE BLOOD CELL COUNT,WBC 11.04 K/uL (3.9-11.3)
[2023-06-09 06:42] LABS: CALCIUM 10.1 mg/dL (8.5-10.1); CARBON DIOXIDE,CO2 28.9 mmol/L (21.0-32.0); CREATININE 1.3 mg/dL (0.8-1.3); EST CRCL DRUG DOSING (CG) 43.81 mL/min; POTASSIUM,K 3.7 mmol/L (3.5-5.1)
[2023-06-09] MEDS: Furosemide 40 MG Tab PO SCH (09:07)
[2023-06-09] MEDS: Acetaminophen 325 MG Tab PO SCH ×3 (10:50→21:41)
[2023-06-09] MEDS: Meloxicam 7.5 MG Tab PO SCH (10:59)
[2023-06-09] MEDS ORDERED: Calcium Carbonate 500 MG Tab.Chew PO PRN (13:18)
[2023-06-09] MEDS: Omeprazole 20 MG Cap.CR PO SCH (14:21)
[2023-06-09] MEDS: Enoxaparin 40 MG/0.4 ML Syringe SUBCUT SCH (21:41)
[2023-06-10] MEDS: Acetaminophen 325 MG Tab PO SCH ×2 (03:45→09:14)
[2023-06-10 06:21] LABS: BASOPHILS ABSOLUTE AUTO 0.05 K/uL (0.00-0.20); BASOPHILS PERCENT AUTO 0.4 % (0.0-1.0); EOSINOPHILS ABSOLUTE AUTO 0.64 K/uL (0.00-0.45); EOSINOPHILS PERCENT AUTO 5.5 % (0.0-6.0); HEMATOCRIT 33.3 % (42.0-52.0); HEMOGLOBIN 11.2 g/dL (14.0-18.0); IMMATURE GRAN ABSOLUTE AUTO 0.05 K/uL (0.00-0.05); IMMATURE GRAN PERCENT AUTO 0.4 % (0.0-0.4); LYMPHOCYTES ABSOLUTE AUTO 2.29 K/uL (1.00-4.80); LYMPHOCYTES PERCENT AUTO 19.5 % (24.0-44.0); MEAN CORPUSCULAR HGB CONC 33.6 g/dL (32.0-36.0); MEAN CORPUSCULAR VOLUME 89.3 fL (83.0-99.0); MEAN PLATELET VOLUME 10.7 fL (9.4-12.4); MONOCYTES ABSOLUTE AUTO 0.97 K/uL (0.00-0.80); MONOCYTES PERCENT AUTO 8.3 % (0.0-8.0); NEUTROPHILS ABSOLUTE AUTO 7.74 K/uL (1.80-7.70); NEUTROPHILS PERCENT AUTO 65.9 % (41.0-71.0); PLATELET COUNT,PLT 361 K/uL (150-400); RED BLOOD CELL COUNT 3.73 M/uL (4.52-5.90); WHITE BLOOD CELL COUNT,WBC 11.74 K/uL (3.9-11.3)
[2023-06-10 06:43] LABS: CALCIUM 10.1 mg/dL (8.5-10.1); CARBON DIOXIDE,CO2 28.4 mmol/L (21.0-32.0); CREATININE 1.1 mg/dL (0.8-1.3); EST CRCL DRUG DOSING (CG) 51.78 mL/min; POTASSIUM,K 3.3 mmol/L (3.5-5.1)
[2023-06-10] MEDS: Omeprazole 20 MG Cap.CR PO SCH (06:48)
[2023-06-10] MEDS ORDERED: Potassium Chloride 20 MEQ Tab.ER PO ONE (07:25)
[2023-06-10] MEDS: Furosemide 40 MG Tab PO SCH (08:46)
[2023-06-10] MEDS: Meloxicam 7.5 MG Tab PO SCH (08:46)
[2023-06-10 13:38] VITALS: BP 109/61; PULSE 73
== END 2023-06-10 13:55 | disposition home or self-care (01) ==
LOC: MW.ED 13:43 → MW.MS 18:01
PROVIDERS: ADMIT Internal Medicine; ATTEND Internal Medicine
DX: M79.604 Pain in right leg (principal); M25.571 Pain in right ankle and joints of right foot; R22.41 Localized swelling, mass and lump, right lower limb; R26.2 Difficulty in walking, not elsewhere classified; R53.1 Weakness; I11.0 Hypertensive heart disease with heart failure; I50.30 Unspecified diastolic (congestive) heart failure; K21.9 Gastro-esophageal reflux disease without esophagitis; N40.0 Benign prostatic hyperplasia without lower urinary tract symptoms; M19.90 Unspecified osteoarthritis, unspecified site; Z79.1 Long term (current) use of non-steroidal anti-inflammatories (NSAID); Z79.899 Other long term (current) drug therapy
CPT/HCPCS: 36415; 51702; 73610; 73620; 73718; 80048; 80053; 83880; 84484; 84550; 85025; 85610; 93005; 96372; 96374; 97110; 97162; 97530; 99285; A9270; G0378; J1650; J1940; J3490

== ENCOUNTER 2023-06-14 14:10 | Emergency (ER) | payer OTHER ==
[2023-06-14 20:07] VITALS: BP 136/69; PULSE 88
== END 2023-06-14 17:21 | disposition home or self-care (01) ==
LOC: MW.ED 14:10
DX: I11.0 Hypertensive heart disease with heart failure (principal); I50.9 Heart failure, unspecified; Z79.899 Other long term (current) drug therapy
CPT/HCPCS: 71045; 71045-26; 93010; 99283; 99284

== ENCOUNTER 2023-06-24 11:08 | Inpatient (IN) | payer OTHER, MEDICARE ==
[2023-06-24] MEDS ORDERED: Sodium Chloride 0.9% 1,000 ML IV ONE (11:12)
[2023-06-24] MEDS ORDERED: Ondansetron 4 MG/2 ML SDV IVPUSH ONE (11:12)
[2023-06-24 11:31] LABS: BASOPHILS ABSOLUTE AUTO 0.02 K/uL (0.00-0.20); BASOPHILS PERCENT AUTO 0.1 % (0.0-1.0); HEMATOCRIT 34.5 % (42.0-52.0); HEMOGLOBIN 11.7 g/dL (14.0-18.0); IMMATURE GRAN ABSOLUTE AUTO 0.07 K/uL (0.00-0.05); IMMATURE GRAN PERCENT AUTO 0.4 % (0.0-0.4); LYMPHOCYTES ABSOLUTE AUTO 1.48 K/uL (1.00-4.80); LYMPHOCYTES PERCENT AUTO 8.6 % (24.0-44.0); MEAN CORPUSCULAR HEMOGLOBIN 29.8 pg (28.0-32.0); MEAN CORPUSCULAR HGB CONC 33.9 g/dL (32.0-36.0); MEAN PLATELET VOLUME 10.4 fL (9.4-12.4); MONOCYTES ABSOLUTE AUTO 0.86 K/uL (0.00-0.80); NEUTROPHILS ABSOLUTE AUTO 14.72 K/uL (1.80-7.70); NEUTROPHILS PERCENT AUTO 85.9 % (41.0-71.0); PLATELET COUNT,PLT 447 K/uL (150-400); RED BLOOD CELL COUNT 3.92 M/uL (4.52-5.90); WHITE BLOOD CELL COUNT,WBC 17.15 K/uL (3.9-11.3)
[2023-06-24] MEDS ORDERED: cefTRIAXone 2 GM in Sodium Chloride 0.9% 50 ML IV ONE (11:53)
[2023-06-24 11:59] LABS: A/G RATIO 0.5 (0.9-1.6); ALBUMIN 2.9 g/dL (3.4-5.0); BILIRUBIN TOTAL 0.4 mg/dL (0.2-1.0); CALCIUM 10.3 mg/dL (8.5-10.1); CARBON DIOXIDE,CO2 27.1 mmol/L (21.0-32.0); CREATININE 1.1 mg/dL (0.8-1.3); EST CRCL DRUG DOSING (CG) 51.78 mL/min; POTASSIUM,K 3.7 mmol/L (3.5-5.1); PROTEIN TOTAL,TP 8.5 g/dL (6.4-8.2)
[2023-06-24 12:40] LABS: BILIRUBIN,URINE NEGATIVE (NEGATIVE); COLOR,URINE YELLOW; GLUCOSE,URINE NEGATIVE (NEGATIVE); KETONES,URINE NEGATIVE (NEGATIVE); LEUKOCYTE ESTERASE,URINE SMALL (NEGATIVE); NITRITE,URINE POSITIVE (NEGATIVE); OCCULT BLOOD,URINE MODERATE (NEGATIVE); PH,URINE 8.5 (5.0-8.0); PROTEIN,URINE 100 mg/dL (NEGATIVE)
[2023-06-24 12:51] LABS: AMORPHOUS SEDIMENT,URINE MANY (NEGATIVE); APPEARANCE,URINE CLOUDY; BACTERIA,URINE 4+ (NEGATIVE); EPITHELIAL CELLS,URINE RARE (NONE-FEW)
[2023-06-24 12:52] LABS: CALCIUM OXALATE CRYSTALS,URINE FEW (NEGATIVE)
[2023-06-24] MEDS ORDERED: Iopamidol 755 MG/ML 500 ML Multipack Bottle IVPUSH STA (13:28)
[2023-06-24] MEDS ORDERED: Naloxone 0.4 MG/ML SDV IVPUSH PRN (18:43)
[2023-06-24] MEDS ORDERED: traMADol 50 MG Tab PO PRN (18:43)
[2023-06-24] MEDS ORDERED: Acetaminophen 325 MG Tab PO PRN (18:43)
[2023-06-24] MEDS ORDERED: Morphine 2 MG/ML SYRINGE IVPUSH PRN (18:43)
[2023-06-24] MEDS ORDERED: metroNIDAZOLE/Normal Saline 500 MG in Premix Bag 1 BAG IV SCH (20:00)
[2023-06-24] MEDS: Pantoprazole 40 MG in Sodium Chloride 0.9% 10 ML IVPUSH SCH (20:26)
[2023-06-24] MEDS: Enoxaparin 40 MG/0.4 ML Syringe SUBCUT SCH (20:27)
[2023-06-25] MEDS: metroNIDAZOLE/Normal Saline 500 MG in Premix Bag 1 BAG IV SCH ×4 (04:02→21:45)
[2023-06-25 06:42] LABS: HEMATOCRIT 36.2 % (42.0-52.0); HEMOGLOBIN 12.1 g/dL (14.0-18.0); MEAN CORPUSCULAR HEMOGLOBIN 29.7 pg (28.0-32.0); MEAN CORPUSCULAR HGB CONC 33.4 g/dL (32.0-36.0); MEAN CORPUSCULAR VOLUME 88.7 fL (83.0-99.0); MEAN PLATELET VOLUME 11.2 fL (9.4-12.4); PLATELET COUNT,PLT 389 K/uL (150-400); RED BLOOD CELL COUNT 4.08 M/uL (4.52-5.90)
[2023-06-25 06:50] LABS: WHITE BLOOD CELL COUNT,WBC 31.57 K/uL (3.9-11.3)
[2023-06-25 07:06] LABS: LYMPHOCYTES ABSOLUTE MAN 2.8 (0.6-2.4); LYMPHOCYTES PERCENT MAN 9 % (16.0-40.0); MONOCYTES ABSOLUTE MAN 1.9 (0.0-0.8); MONOCYTES PERCENT MAN 6 % (0.0-15.0); SEG NEUTROPHILS ABSOLUTE MAN 26.8 (1.4-5.7); SEG NEUTROPHILS PERCENT MAN 85 % (48.0-80.0)
[2023-06-25 07:10] LABS: A/G RATIO 0.5 (0.9-1.6); ALBUMIN 2.3 g/dL (3.4-5.0); BILIRUBIN TOTAL 0.6 mg/dL (0.2-1.0); CALCIUM 10.4 mg/dL (8.5-10.1); CARBON DIOXIDE,CO2 27.9 mmol/L (21.0-32.0); CREATININE 1.2 mg/dL (0.8-1.3); EST CRCL DRUG DOSING (CG) 47.46 mL/min; MAGNESIUM 2.2 mg/dL (1.8-2.4); POTASSIUM,K 4.4 mmol/L (3.5-5.1); PROTEIN TOTAL,TP 7.4 g/dL (6.4-8.2)
[2023-06-25] MEDS ORDERED: Cefepime 1 GM Vial IVPUSH SCH (08:00)
[2023-06-25] MEDS ORDERED: Morphine 2 MG/ML SYRINGE IVPUSH PRN (08:45)
[2023-06-25] MEDS ORDERED: Cefepime 2 GM in Sodium Chloride 0.9% 50 ML IV SCH ×2 (09:00)
[2023-06-25] MEDS: Meloxicam 7.5 MG Tab PO SCH (09:04)
[2023-06-25] MEDS: Furosemide 40 MG Tab PO SCH (09:04)
[2023-06-25] MEDS: Cefepime 2 GM in Sodium Chloride 0.9% 50 ML IV SCH ×2 (09:05→20:01)
[2023-06-25] MEDS: Pantoprazole 40 MG in Sodium Chloride 0.9% 10 ML IVPUSH SCH ×2 (09:05→20:05)
[2023-06-25] MEDS: Lactated Ringers 500 ML IV SCH ×3 (09:48→15:24)
[2023-06-25 15:07] LABS: HEMATOCRIT 34.4 % (42.0-52.0); HEMOGLOBIN 11.7 g/dL (14.0-18.0); MEAN CORPUSCULAR HEMOGLOBIN 29.8 pg (28.0-32.0); MEAN CORPUSCULAR VOLUME 87.8 fL (83.0-99.0); MEAN PLATELET VOLUME 10.6 fL (9.4-12.4); PLATELET COUNT,PLT 421 K/uL (150-400); RED BLOOD CELL COUNT 3.92 M/uL (4.52-5.90)
[2023-06-25 15:12] LABS: WHITE BLOOD CELL COUNT,WBC 30.62 K/uL (3.9-11.3)
[2023-06-25 15:22] LABS: BAND ABSOLUTE MAN 0.6; BAND PERCENT MAN 2 %; LYMPHOCYTES ABSOLUTE MAN 3.4 (0.6-2.4); LYMPHOCYTES PERCENT MAN 11 % (16.0-40.0); MONOCYTES ABSOLUTE MAN 3.1 (0.0-0.8); MONOCYTES PERCENT MAN 10 % (0.0-15.0); SEG NEUTROPHILS ABSOLUTE MAN 23.6 (1.4-5.7); SEG NEUTROPHILS PERCENT MAN 77 % (48.0-80.0)
[2023-06-25 15:37] LABS: A/G RATIO 0.4 (0.9-1.6); ALBUMIN 2.1 g/dL (3.4-5.0); BILIRUBIN TOTAL 0.5 mg/dL (0.2-1.0); CARBON DIOXIDE,CO2 27.8 mmol/L (21.0-32.0); CREATININE 1.2 mg/dL (0.8-1.3); EST CRCL DRUG DOSING (CG) 47.46 mL/min; POTASSIUM,K 4.2 mmol/L (3.5-5.1)
[2023-06-25] MEDS: Enoxaparin 40 MG/0.4 ML Syringe SUBCUT SCH (20:08)
[2023-06-26] MEDS: metroNIDAZOLE/Normal Saline 500 MG in Premix Bag 1 BAG IV SCH ×2 (02:39→09:54)
[2023-06-26 05:42] LABS: HEMATOCRIT 32.8 % (42.0-52.0); HEMOGLOBIN 11.2 g/dL (14.0-18.0); MEAN CORPUSCULAR HEMOGLOBIN 29.9 pg (28.0-32.0); MEAN CORPUSCULAR HGB CONC 34.1 g/dL (32.0-36.0); MEAN CORPUSCULAR VOLUME 87.7 fL (83.0-99.0); MEAN PLATELET VOLUME 10.8 fL (9.4-12.4); PLATELET COUNT,PLT 411 K/uL (150-400); RED BLOOD CELL COUNT 3.74 M/uL (4.52-5.90); WHITE BLOOD CELL COUNT,WBC 28.85 K/uL (3.9-11.3)
[2023-06-26 06:05] LABS: A/G RATIO 0.4 (0.9-1.6); ALBUMIN 1.8 g/dL (3.4-5.0); BILIRUBIN TOTAL 0.6 mg/dL (0.2-1.0); CALCIUM 10.1 mg/dL (8.5-10.1); CREATININE 1.2 mg/dL (0.8-1.3); EST CRCL DRUG DOSING (CG) 47.46 mL/min; POTASSIUM,K 3.6 mmol/L (3.5-5.1); PROTEIN TOTAL,TP 6.6 g/dL (6.4-8.2)
[2023-06-26] MEDS ORDERED: Lactated Ringers 500 ML IV SCH (08:45)
[2023-06-26] MEDS: Pantoprazole 40 MG in Sodium Chloride 0.9% 10 ML IVPUSH SCH ×2 (08:56→20:06)
[2023-06-26] MEDS: Cefepime 2 GM in Sodium Chloride 0.9% 50 ML IV SCH (08:57)
[2023-06-26] MEDS: Furosemide 40 MG Tab PO SCH (08:59)
[2023-06-26] MEDS: Meloxicam 7.5 MG Tab PO SCH (09:00)
[2023-06-26] MEDS ORDERED: VANCOmycin 1.75 GM/350 ML 1.75 GM in Premix Bag 1 BAG IV ONE (10:45)
[2023-06-26] MEDS: Piperacillin/Tazobactam 4.5 GM in Sodium Chloride 0.9% 100 ML IV SCH ×3 (11:15→21:50)
[2023-06-26 14:58] LABS: HEMATOCRIT 33.3 % (42.0-52.0); HEMOGLOBIN 11.1 g/dL (14.0-18.0); MEAN CORPUSCULAR HEMOGLOBIN 29.4 pg (28.0-32.0); MEAN CORPUSCULAR HGB CONC 33.3 g/dL (32.0-36.0); MEAN CORPUSCULAR VOLUME 88.1 fL (83.0-99.0); MEAN PLATELET VOLUME 10.8 fL (9.4-12.4); PLATELET COUNT,PLT 419 K/uL (150-400); RED BLOOD CELL COUNT 3.78 M/uL (4.52-5.90); WHITE BLOOD CELL COUNT,WBC 26.41 K/uL (3.9-11.3)
[2023-06-26 15:12] LABS: LYMPHOCYTES ABSOLUTE MAN 3.7 (0.6-2.4); LYMPHOCYTES PERCENT MAN 14 % (16.0-40.0); MONOCYTES ABSOLUTE MAN 1.6 (0.0-0.8); MONOCYTES PERCENT MAN 6 % (0.0-15.0); SEG NEUTROPHILS ABSOLUTE MAN 21.1 (1.4-5.7); SEG NEUTROPHILS PERCENT MAN 80 % (48.0-80.0)
[2023-06-26] MEDS ORDERED: Lactated Ringers 1,000 ML IV SCH ×2 (15:45→18:15)
[2023-06-26] MEDS: Enoxaparin 40 MG/0.4 ML Syringe SUBCUT SCH (20:04)
[2023-06-27] MEDS: Acetaminophen 325 MG Tab PO SCH ×6 (03:34→22:56)
[2023-06-27] MEDS: Piperacillin/Tazobactam 4.5 GM in Sodium Chloride 0.9% 100 ML IV SCH ×4 (03:50→22:56)
[2023-06-27 05:53] LABS: BASOPHILS ABSOLUTE AUTO 0.02 K/uL (0.00-0.20); BASOPHILS PERCENT AUTO 0.1 % (0.0-1.0); EOSINOPHILS ABSOLUTE AUTO 0.17 K/uL (0.00-0.45); EOSINOPHILS PERCENT AUTO 0.9 % (0.0-6.0); HEMOGLOBIN 9.8 g/dL (14.0-18.0); IMMATURE GRAN ABSOLUTE AUTO 0.07 K/uL (0.00-0.05); IMMATURE GRAN PERCENT AUTO 0.4 % (0.0-0.4); LYMPHOCYTES ABSOLUTE AUTO 1.83 K/uL (1.00-4.80); MEAN CORPUSCULAR HEMOGLOBIN 29.9 pg (28.0-32.0); MEAN CORPUSCULAR HGB CONC 33.8 g/dL (32.0-36.0); MEAN CORPUSCULAR VOLUME 88.4 fL (83.0-99.0); MEAN PLATELET VOLUME 10.9 fL (9.4-12.4); MONOCYTES ABSOLUTE AUTO 1.24 K/uL (0.00-0.80); MONOCYTES PERCENT AUTO 6.8 % (0.0-8.0); NEUTROPHILS PERCENT AUTO 81.8 % (41.0-71.0); PLATELET COUNT,PLT 372 K/uL (150-400); RED BLOOD CELL COUNT 3.28 M/uL (4.52-5.90); WHITE BLOOD CELL COUNT,WBC 18.23 K/uL (3.9-11.3)
[2023-06-27 06:30] LABS: ALBUMIN 1.5 g/dL (3.4-5.0); BILIRUBIN TOTAL 0.5 mg/dL (0.2-1.0); CALCIUM 9.3 mg/dL (8.5-10.1); CARBON DIOXIDE,CO2 25.5 mmol/L (21.0-32.0); CREATININE 1.2 mg/dL (0.8-1.3); EST CRCL DRUG DOSING (CG) 47.46 mL/min; MAGNESIUM 1.7 mg/dL (1.8-2.4); POTASSIUM,K 2.7 mmol/L (3.5-5.1); PROTEIN TOTAL,TP 5.8 g/dL (6.4-8.2)
[2023-06-27 06:33] LABS: A/G RATIO 0.4 (0.9-1.6)
[2023-06-27] MEDS ORDERED: Potassium Chloride 20 MEQ Tab.ER PO ONE ×4 (07:30→18:30)
[2023-06-27] MEDS ORDERED: Magnesium Sulfate/Water 2 GM in Premix Bag 1 BAG IV ONE (07:30)
[2023-06-27] MEDS: Furosemide 40 MG Tab PO SCH (07:30)
[2023-06-27] MEDS: Pantoprazole 40 MG in Sodium Chloride 0.9% 10 ML IVPUSH SCH ×2 (08:32→19:58)
[2023-06-27] MEDS: Potassium Chloride 100 ML IV SCH ×2 (09:39→12:46)
[2023-06-27] MEDS: Meloxicam 7.5 MG Tab PO SCH (10:00)
[2023-06-27] MEDS: VANCOmycin 1.5 GM/300 ML 1.5 GM in Premix Bag 1 BAG IV SCH (12:38)
[2023-06-27 15:30] LABS: BASOPHILS ABSOLUTE AUTO 0.02 K/uL (0.00-0.20); BASOPHILS PERCENT AUTO 0.1 % (0.0-1.0); EOSINOPHILS ABSOLUTE AUTO 0.38 K/uL (0.00-0.45); EOSINOPHILS PERCENT AUTO 2.2 % (0.0-6.0); HEMATOCRIT 29.8 % (42.0-52.0); HEMOGLOBIN 10.1 g/dL (14.0-18.0); IMMATURE GRAN ABSOLUTE AUTO 0.07 K/uL (0.00-0.05); IMMATURE GRAN PERCENT AUTO 0.4 % (0.0-0.4); LYMPHOCYTES ABSOLUTE AUTO 1.98 K/uL (1.00-4.80); LYMPHOCYTES PERCENT AUTO 11.4 % (24.0-44.0); MEAN CORPUSCULAR HEMOGLOBIN 29.6 pg (28.0-32.0); MEAN CORPUSCULAR HGB CONC 33.9 g/dL (32.0-36.0); MEAN CORPUSCULAR VOLUME 87.4 fL (83.0-99.0); MEAN PLATELET VOLUME 10.8 fL (9.4-12.4); MONOCYTES PERCENT AUTO 7.5 % (0.0-8.0); NEUTROPHILS ABSOLUTE AUTO 13.69 K/uL (1.80-7.70); NEUTROPHILS PERCENT AUTO 78.4 % (41.0-71.0); PLATELET COUNT,PLT 393 K/uL (150-400); RED BLOOD CELL COUNT 3.41 M/uL (4.52-5.90); WHITE BLOOD CELL COUNT,WBC 17.44 K/uL (3.9-11.3)
[2023-06-27 16:00] LABS: A/G RATIO 0.4 (0.9-1.6); ALBUMIN 1.6 g/dL (3.4-5.0); BILIRUBIN TOTAL 0.4 mg/dL (0.2-1.0); CALCIUM 9.4 mg/dL (8.5-10.1); CARBON DIOXIDE,CO2 28.3 mmol/L (21.0-32.0); CREATININE 1.2 mg/dL (0.8-1.3); EST CRCL DRUG DOSING (CG) 47.46 mL/min; MAGNESIUM 2.1 mg/dL (1.8-2.4); PROTEIN TOTAL,TP 6.1 g/dL (6.4-8.2)
[2023-06-27] MEDS: Enoxaparin 40 MG/0.4 ML Syringe SUBCUT SCH (19:58)
[2023-06-28] MEDS: Acetaminophen 325 MG Tab PO SCH ×3 (04:03→16:37)
[2023-06-28] MEDS: Piperacillin/Tazobactam 4.5 GM in Sodium Chloride 0.9% 100 ML IV SCH ×3 (04:04→15:38)
[2023-06-28 05:31] LABS: BASOPHILS ABSOLUTE AUTO 0.05 K/uL (0.00-0.20); BASOPHILS PERCENT AUTO 0.3 % (0.0-1.0); EOSINOPHILS ABSOLUTE AUTO 0.77 K/uL (0.00-0.45); HEMATOCRIT 28.5 % (42.0-52.0); HEMOGLOBIN 9.8 g/dL (14.0-18.0); IMMATURE GRAN PERCENT AUTO 0.6 % (0.0-0.4); LYMPHOCYTES ABSOLUTE AUTO 2.07 K/uL (1.00-4.80); LYMPHOCYTES PERCENT AUTO 13.4 % (24.0-44.0); MEAN CORPUSCULAR HEMOGLOBIN 29.7 pg (28.0-32.0); MEAN CORPUSCULAR HGB CONC 34.4 g/dL (32.0-36.0); MEAN CORPUSCULAR VOLUME 86.4 fL (83.0-99.0); MEAN PLATELET VOLUME 10.6 fL (9.4-12.4); MONOCYTES ABSOLUTE AUTO 1.23 K/uL (0.00-0.80); NEUTROPHILS ABSOLUTE AUTO 11.19 K/uL (1.80-7.70); NEUTROPHILS PERCENT AUTO 72.7 % (41.0-71.0); PLATELET COUNT,PLT 390 K/uL (150-400); WHITE BLOOD CELL COUNT,WBC 15.41 K/uL (3.9-11.3)
[2023-06-28 05:54] LABS: ALBUMIN 1.5 g/dL (3.4-5.0); CALCIUM 9.2 mg/dL (8.5-10.1); CARBON DIOXIDE,CO2 26.9 mmol/L (21.0-32.0); CREATININE 1.1 mg/dL (0.8-1.3); EST CRCL DRUG DOSING (CG) 51.78 mL/min; POTASSIUM,K 3.5 mmol/L (3.5-5.1); PROTEIN TOTAL,TP 5.9 g/dL (6.4-8.2)
[2023-06-28 05:55] LABS: A/G RATIO 0.3 (0.9-1.6); BILIRUBIN TOTAL 0.4 mg/dL (0.2-1.0); MAGNESIUM 1.9 mg/dL (1.8-2.4)
[2023-06-28] MEDS: Pantoprazole 40 MG in Sodium Chloride 0.9% 10 ML IVPUSH SCH ×2 (08:55→19:44)
[2023-06-28] MEDS: Meloxicam 7.5 MG Tab PO SCH (09:19)
[2023-06-28] MEDS: VANCOmycin 1.5 GM/300 ML 1.5 GM in Premix Bag 1 BAG IV SCH (11:21)
[2023-06-28 19:47] VITALS: BP 117/59; PULSE 89
== END 2023-06-28 20:10 | DRG 698 ==
LOC: MW.ED 11:08 → MW.MS 18:16
PROVIDERS: ADMIT Family Medicine; ATTEND Family Medicine
DX: T83.511A Infection and inflammatory reaction due to indwelling urethral catheter, initial encounter (principal); A41.9 Sepsis, unspecified organism; Z20.822 Contact with and (suspected) exposure to COVID-19; K81.0 Acute cholecystitis; I50.32 Chronic diastolic (congestive) heart failure; N39.0 Urinary tract infection, site not specified; M19.90 Unspecified osteoarthritis, unspecified site; M10.9 Gout, unspecified; H91.90 Unspecified hearing loss, unspecified ear; I11.0 Hypertensive heart disease with heart failure; K59.00 Constipation, unspecified; E83.52 Hypercalcemia; D64.9 Anemia, unspecified; K21.9 Gastro-esophageal reflux disease without esophagitis; Z96.649 Presence of unspecified artificial hip joint; Z85.828 Personal history of other malignant neoplasm of skin; Z79.899 Other long term (current) drug therapy; Z90.89 Acquired absence of other organs; Z11.52 Encounter for screening for COVID-19; Z90.81 Acquired absence of spleen; Y84.6 Urinary catheterization as the cause of abnormal reaction of the patient, or of later complication, without mention of misadventure at the time of the procedure
CPT/HCPCS: 36415; 51798; 74177; 76705; 80053; 81001; 83605; 83690; 84484; 85025; 87040 ×2; 87086; 87088; 87186; 87635; 93005; 96361; 96365; 96375; 99285; J0696; J2405; J3490; J7030; Q9967; 80202; 82947; 83735; 85027; 93010; 97162-GP; A9270-GY; C9113; J0692; J1650; J2270; J2543; J3370; J3475; J3480; J7120; U0002

== ENCOUNTER 2023-12-07 15:33 | Inpatient (IN) | payer OTHER ==
[2023-12-07 15:55] LABS: BASOPHILS ABSOLUTE AUTO 0.07 K/uL (0.00-0.20); BASOPHILS PERCENT AUTO 0.4 % (0.0-1.0); EOSINOPHILS ABSOLUTE AUTO 0.53 K/uL (0.00-0.45); EOSINOPHILS PERCENT AUTO 3.2 % (0.0-6.0); HEMATOCRIT 38.8 % (42.0-52.0); HEMOGLOBIN 13.3 g/dL (14.0-18.0); IMMATURE GRAN ABSOLUTE AUTO 0.04 K/uL (0.00-0.05); IMMATURE GRAN PERCENT AUTO 0.2 % (0.0-0.4); LYMPHOCYTES ABSOLUTE AUTO 3.99 K/uL (1.00-4.80); LYMPHOCYTES PERCENT AUTO 23.8 % (24.0-44.0); MEAN CORPUSCULAR HEMOGLOBIN 31.3 pg (28.0-32.0); MEAN CORPUSCULAR HGB CONC 34.3 g/dL (32.0-36.0); MEAN CORPUSCULAR VOLUME 91.3 fL (83.0-99.0); MEAN PLATELET VOLUME 10.4 fL (9.4-12.4); MONOCYTES PERCENT AUTO 8.9 % (0.0-8.0); NEUTROPHILS ABSOLUTE AUTO 10.67 K/uL (1.80-7.70); NEUTROPHILS PERCENT AUTO 63.5 % (41.0-71.0); PLATELET COUNT,PLT 257 K/uL (150-400); RED BLOOD CELL COUNT 4.25 M/uL (4.52-5.90)
[2023-12-07 16:22] LABS: A/G RATIO 0.8 (0.9-1.6); ALBUMIN 3.5 g/dL (3.4-5.0); BILIRUBIN TOTAL 0.6 mg/dL (0.2-1.0); CALCIUM 10.5 mg/dL (8.5-10.1); CARBON DIOXIDE,CO2 27.7 mmol/L (21.0-32.0); CREATININE 1.2 mg/dL (0.8-1.3); POTASSIUM,K 4.8 mmol/L (3.5-5.1); PROTEIN TOTAL,TP 7.8 g/dL (6.4-8.2)
[2023-12-07 16:54] LABS: APPEARANCE,URINE CLOUDY; BILIRUBIN,URINE NEGATIVE (NEGATIVE); GLUCOSE,URINE NEGATIVE (NEGATIVE); KETONES,URINE NEGATIVE (NEGATIVE); LEUKOCYTE ESTERASE,URINE MODERATE (NEGATIVE); NITRITE,URINE POSITIVE (NEGATIVE); OCCULT BLOOD,URINE LARGE (NEGATIVE); PROTEIN,URINE 30 mg/dL (NEGATIVE); UROBILINOGEN,URINE 0.2 EU/dL (<2.0)
[2023-12-07 16:58] LABS: COLOR,URINE RED
[2023-12-07 16:59] LABS: BACTERIA,URINE 3+ (NEGATIVE); EPITHELIAL CELLS,URINE NOT SEEN (NONE-FEW); MUCUS,URINE NOT SEEN (NONE-MOD); RBC,URINE TOO NUMEROUS TO CT (0-2/HPF)
[2023-12-07] MEDS: cefTRIAXone 1 GM in Sodium Chloride 0.9% 50 ML IV ONE (17:49)
[2023-12-07] MEDS: Ondansetron 4 MG/2 ML SDV IVPUSH ONE (18:05)
[2023-12-07] MEDS: Morphine 4 MG/ML Syringe IVPUSH ONE (18:05)
[2023-12-07 18:36] LABS: LACTIC ACID 1.2 mmol/L (0.4-2.0)
[2023-12-07] MEDS ORDERED: Polyethylene Glycol 3350 Powder 17 GM Packet PO PRN (19:23)
[2023-12-07] MEDS ORDERED: Ondansetron 4 MG Tab.DIS PO PRN (19:23)
[2023-12-07] MEDS: Sodium Chloride 0.9% 500 ML IV SCH (20:21)
[2023-12-07] MEDS: Pantoprazole 40 MG Tab.CR PO SCH (21:06)
[2023-12-07] MEDS: Acetaminophen 325 MG Tab PO PRN (21:06)
[2023-12-07] MEDS: Sodium Chloride 0.9% 1,000 ML IV ONE (22:06)
[2023-12-07] MEDS: Cefepime 2 GM in Sodium Chloride 0.9% 50 ML IV SCH (22:09)
[2023-12-08 06:14] LABS: HEMATOCRIT 33.8 % (42.0-52.0); HEMOGLOBIN 11.7 g/dL (14.0-18.0); MEAN CORPUSCULAR HEMOGLOBIN 31.5 pg (28.0-32.0); MEAN CORPUSCULAR HGB CONC 34.6 g/dL (32.0-36.0); MEAN CORPUSCULAR VOLUME 90.9 fL (83.0-99.0); MEAN PLATELET VOLUME 10.6 fL (9.4-12.4); PLATELET COUNT,PLT 214 K/uL (150-400); RED BLOOD CELL COUNT 3.72 M/uL (4.52-5.90); WHITE BLOOD CELL COUNT,WBC 17.73 K/uL (3.9-11.3)
[2023-12-08 06:46] LABS: A/G RATIO 0.6 (0.9-1.6); ALBUMIN 2.5 g/dL (3.4-5.0); BILIRUBIN TOTAL 0.7 mg/dL (0.2-1.0); CALCIUM 9.2 mg/dL (8.5-10.1); CARBON DIOXIDE,CO2 26.3 mmol/L (21.0-32.0); CREATININE 1.1 mg/dL (0.8-1.3); EST CRCL DRUG DOSING (CG) 53.46 mL/min; POTASSIUM,K 4.2 mmol/L (3.5-5.1); PROTEIN TOTAL,TP 6.5 g/dL (6.4-8.2)
[2023-12-08 07:14] LABS: SEG NEUTROPHILS ABSOLUTE MAN 13.65 K/uL (1.80-7.70); SEG NEUTROPHILS PERCENT MAN 77 % (41-71)
[2023-12-08 07:15] LABS: EOSINOPHILS ABSOLUTE MAN 0.18 K/uL (0.00-0.45); EOSINOPHILS PERCENT MAN 1 % (0-6); LYMPHOCYTES PERCENT MAN 13 % (24-44); MONOCYTES PERCENT MAN 9 % (0-8)
[2023-12-08 13:19] LABS: HEMOGLOBIN 11.7 g/dL (14.0-18.0); MEAN CORPUSCULAR HGB CONC 34.4 g/dL (32.0-36.0); MEAN CORPUSCULAR VOLUME 90.2 fL (83.0-99.0); PLATELET COUNT,PLT 226 K/uL (150-400); RED BLOOD CELL COUNT 3.77 M/uL (4.52-5.90)
[2023-12-08 14:14] LABS: EOSINOPHILS ABSOLUTE MAN 0.88 K/uL (0.00-0.45); EOSINOPHILS PERCENT MAN 5 % (0-6); LYMPHOCYTES ABSOLUTE MAN 2.98 K/uL (1.00-4.80); LYMPHOCYTES PERCENT MAN 17 % (24-44); METAMYELOCYTE ABSOLUTE MAN 0.35; METAMYELOCYTE PERCENT MAN 2 %; MONOCYTES ABSOLUTE MAN 0.88 K/uL (0.00-0.80); MONOCYTES PERCENT MAN 5 % (0-8); SEG NEUTROPHILS ABSOLUTE MAN 12.43 K/uL (1.80-7.70); SEG NEUTROPHILS PERCENT MAN 71 % (41-71)
[2023-12-08] MEDS ORDERED: cefTRIAXone 1 GM in Sodium Chloride 0.9% 50 ML IV SCH (17:00)
[2023-12-09] MEDS: Albuterol/Ipratropium 3.0-0.5 MG/3 ML Neb Soln NEB PRN (03:28)
[2023-12-09 06:13] LABS: HEMATOCRIT 32.4 % (42.0-52.0); HEMOGLOBIN 10.9 g/dL (14.0-18.0); MEAN CORPUSCULAR HEMOGLOBIN 30.4 pg (28.0-32.0); MEAN CORPUSCULAR HGB CONC 33.6 g/dL (32.0-36.0); MEAN CORPUSCULAR VOLUME 90.5 fL (83.0-99.0); MEAN PLATELET VOLUME 11.2 fL (9.4-12.4); PLATELET COUNT,PLT 219 K/uL (150-400); RED BLOOD CELL COUNT 3.58 M/uL (4.52-5.90); WHITE BLOOD CELL COUNT,WBC 16.51 K/uL (3.9-11.3)
[2023-12-09 06:38] LABS: A/G RATIO 0.6 (0.9-1.6); ALBUMIN 2.4 g/dL (3.4-5.0); BILIRUBIN TOTAL 0.5 mg/dL (0.2-1.0); CALCIUM 9.2 mg/dL (8.5-10.1); CARBON DIOXIDE,CO2 24.3 mmol/L (21.0-32.0); CREATININE 1.1 mg/dL (0.8-1.3); EST CRCL DRUG DOSING (CG) 53.46 mL/min; POTASSIUM,K 4.1 mmol/L (3.5-5.1); PROTEIN TOTAL,TP 6.5 g/dL (6.4-8.2)
[2023-12-09 07:28] LABS: EOSINOPHILS ABSOLUTE MAN 1.49 K/uL (0.00-0.45); EOSINOPHILS PERCENT MAN 9 % (0-6); LYMPHOCYTES ABSOLUTE MAN 2.15 K/uL (1.00-4.80); LYMPHOCYTES PERCENT MAN 13 % (24-44); MONOCYTES ABSOLUTE MAN 1.82 K/uL (0.00-0.80); MONOCYTES PERCENT MAN 11 % (0-8); SEG NEUTROPHILS ABSOLUTE MAN 11.06 K/uL (1.80-7.70); SEG NEUTROPHILS PERCENT MAN 67 % (41-71)
[2023-12-09] MEDS: Furosemide 40 MG Tab PO SCH (10:25)
[2023-12-10 06:14] LABS: BASOPHILS ABSOLUTE AUTO 0.07 K/uL (0.00-0.20); BASOPHILS PERCENT AUTO 0.6 % (0.0-1.0); EOSINOPHILS ABSOLUTE AUTO 1.17 K/uL (0.00-0.45); EOSINOPHILS PERCENT AUTO 9.7 % (0.0-6.0); HEMATOCRIT 33.3 % (42.0-52.0); HEMOGLOBIN 11.5 g/dL (14.0-18.0); IMMATURE GRAN ABSOLUTE AUTO 0.02 K/uL (0.00-0.05); IMMATURE GRAN PERCENT AUTO 0.2 % (0.0-0.4); LYMPHOCYTES ABSOLUTE AUTO 2.45 K/uL (1.00-4.80); LYMPHOCYTES PERCENT AUTO 20.2 % (24.0-44.0); MEAN CORPUSCULAR HEMOGLOBIN 31.2 pg (28.0-32.0); MEAN CORPUSCULAR HGB CONC 34.5 g/dL (32.0-36.0); MEAN CORPUSCULAR VOLUME 90.2 fL (83.0-99.0); MEAN PLATELET VOLUME 10.6 fL (9.4-12.4); MONOCYTES ABSOLUTE AUTO 1.07 K/uL (0.00-0.80); MONOCYTES PERCENT AUTO 8.8 % (0.0-8.0); NEUTROPHILS ABSOLUTE AUTO 7.34 K/uL (1.80-7.70); NEUTROPHILS PERCENT AUTO 60.5 % (41.0-71.0); PLATELET COUNT,PLT 241 K/uL (150-400); RED BLOOD CELL COUNT 3.69 M/uL (4.52-5.90); WHITE BLOOD CELL COUNT,WBC 12.12 K/uL (3.9-11.3)
[2023-12-10 06:52] LABS: A/G RATIO 0.5 (0.9-1.6); ALBUMIN 2.3 g/dL (3.4-5.0); BILIRUBIN TOTAL 0.5 mg/dL (0.2-1.0); CALCIUM 9.3 mg/dL (8.5-10.1); CREATININE 1.3 mg/dL (0.8-1.3); EST CRCL DRUG DOSING (CG) 45.24 mL/min; POTASSIUM,K 4.1 mmol/L (3.5-5.1); PROTEIN TOTAL,TP 6.6 g/dL (6.4-8.2)
[2023-12-11 06:10] LABS: BASOPHILS ABSOLUTE AUTO 0.08 K/uL (0.00-0.20); BASOPHILS PERCENT AUTO 0.9 % (0.0-1.0); EOSINOPHILS ABSOLUTE AUTO 1.04 K/uL (0.00-0.45); EOSINOPHILS PERCENT AUTO 11.2 % (0.0-6.0); HEMATOCRIT 34.9 % (42.0-52.0); HEMOGLOBIN 11.7 g/dL (14.0-18.0); IMMATURE GRAN ABSOLUTE AUTO 0.02 K/uL (0.00-0.05); IMMATURE GRAN PERCENT AUTO 0.2 % (0.0-0.4); LYMPHOCYTES PERCENT AUTO 25.9 % (24.0-44.0); MEAN CORPUSCULAR HEMOGLOBIN 30.7 pg (28.0-32.0); MEAN CORPUSCULAR HGB CONC 33.5 g/dL (32.0-36.0); MEAN CORPUSCULAR VOLUME 91.6 fL (83.0-99.0); MEAN PLATELET VOLUME 11.1 fL (9.4-12.4); MONOCYTES ABSOLUTE AUTO 1.05 K/uL (0.00-0.80); MONOCYTES PERCENT AUTO 11.3 % (0.0-8.0); NEUTROPHILS ABSOLUTE AUTO 4.67 K/uL (1.80-7.70); NEUTROPHILS PERCENT AUTO 50.5 % (41.0-71.0); PLATELET COUNT,PLT 259 K/uL (150-400); RED BLOOD CELL COUNT 3.81 M/uL (4.52-5.90); WHITE BLOOD CELL COUNT,WBC 9.26 K/uL (3.9-11.3)
[2023-12-11 06:38] LABS: A/G RATIO 0.5 (0.9-1.6); ALBUMIN 2.5 g/dL (3.4-5.0); BILIRUBIN TOTAL 0.6 mg/dL (0.2-1.0); CALCIUM 9.8 mg/dL (8.5-10.1); CARBON DIOXIDE,CO2 27.4 mmol/L (21.0-32.0); CREATININE 1.1 mg/dL (0.8-1.3); EST CRCL DRUG DOSING (CG) 53.46 mL/min; POTASSIUM,K 4.4 mmol/L (3.5-5.1); PROTEIN TOTAL,TP 7.1 g/dL (6.4-8.2)
[2023-12-11 11:43] LABS: CORONAVIRUS COVID-19 NAA NEGATIVE (NEGATIVE); INFLUENZA A NAA NEGATIVE (NEGATIVE); INFLUENZA B NAA NEGATIVE (NEGATIVE); RESPIRATORY SYNCYTIAL VIR NAA NEGATIVE (NEGATIVE)
[2023-12-11] MEDS: Carboxymethylcellulose Sodium 0.5% Ophth Soln 0.4 ML UD Box of 30 EYEBOTH PRN (14:25)
[2023-12-12 05:34] LABS: BASOPHILS ABSOLUTE AUTO 0.07 K/uL (0.00-0.20); BASOPHILS PERCENT AUTO 0.8 % (0.0-1.0); EOSINOPHILS ABSOLUTE AUTO 0.94 K/uL (0.00-0.45); EOSINOPHILS PERCENT AUTO 10.8 % (0.0-6.0); HEMATOCRIT 34.6 % (42.0-52.0); HEMOGLOBIN 11.7 g/dL (14.0-18.0); IMMATURE GRAN ABSOLUTE AUTO 0.02 K/uL (0.00-0.05); IMMATURE GRAN PERCENT AUTO 0.2 % (0.0-0.4); LYMPHOCYTES ABSOLUTE AUTO 2.32 K/uL (1.00-4.80); LYMPHOCYTES PERCENT AUTO 26.6 % (24.0-44.0); MEAN CORPUSCULAR HEMOGLOBIN 30.7 pg (28.0-32.0); MEAN CORPUSCULAR HGB CONC 33.8 g/dL (32.0-36.0); MEAN CORPUSCULAR VOLUME 90.8 fL (83.0-99.0); MONOCYTES ABSOLUTE AUTO 0.93 K/uL (0.00-0.80); MONOCYTES PERCENT AUTO 10.7 % (0.0-8.0); NEUTROPHILS ABSOLUTE AUTO 4.45 K/uL (1.80-7.70); NEUTROPHILS PERCENT AUTO 50.9 % (41.0-71.0); PLATELET COUNT,PLT 271 K/uL (150-400); RED BLOOD CELL COUNT 3.81 M/uL (4.52-5.90); WHITE BLOOD CELL COUNT,WBC 8.73 K/uL (3.9-11.3)
[2023-12-12 05:59] LABS: A/G RATIO 0.5 (0.9-1.6); ALBUMIN 2.5 g/dL (3.4-5.0); BILIRUBIN TOTAL 0.4 mg/dL (0.2-1.0); CALCIUM 9.9 mg/dL (8.5-10.1); CARBON DIOXIDE,CO2 25.6 mmol/L (21.0-32.0); CREATININE 1.1 mg/dL (0.8-1.3); EST CRCL DRUG DOSING (CG) 53.46 mL/min; POTASSIUM,K 4.2 mmol/L (3.5-5.1); PROTEIN TOTAL,TP 7.2 g/dL (6.4-8.2)
[2023-12-12 11:46] VITALS: BP 125/64; PULSE 86
== END 2023-12-12 12:38 | disposition home health service (06) | DRG 698 ==
LOC: MW.ED 15:33 → MW.MS 18:28 → OBSVTOIN 12-08 10:45 → MW.MS 12-08 14:05
PROVIDERS: ADMIT Family Medicine; ATTEND Family Medicine
PROC: 0T9B70Z Drainage of Bladder with Drainage Device, Via Natural or Artificial Opening (ICD-10-PCS; principal; 2023-12-08)
PROC: 3E05329 Introduction of Other Anti-infective into Peripheral Artery, Percutaneous Approach (ICD-10-PCS; 2023-12-08)
DX: N39.0 Urinary tract infection, site not specified (principal); T83.511A Infection and inflammatory reaction due to indwelling urethral catheter, initial encounter; A41.9 Sepsis, unspecified organism; N17.9 Acute kidney failure, unspecified; Z75.8 Other problems related to medical facilities and other health care; N30.91 Cystitis, unspecified with hematuria; B95.2 Enterococcus as the cause of diseases classified elsewhere; B96.89 Other specified bacterial agents as the cause of diseases classified elsewhere; N43.3 Hydrocele, unspecified; Z66 Do not resuscitate; K21.9 Gastro-esophageal reflux disease without esophagitis; R91.1 Solitary pulmonary nodule; K57.30 Diverticulosis of large intestine without perforation or abscess without bleeding; I11.0 Hypertensive heart disease with heart failure; Z96.649 Presence of unspecified artificial hip joint; I50.9 Heart failure, unspecified; Z79.899 Other long term (current) drug therapy; Z85.828 Personal history of other malignant neoplasm of skin; Z86.19 Personal history of other infectious and parasitic diseases; Z90.49 Acquired absence of other specified parts of digestive tract
CPT/HCPCS: 0241U; 36415; 71046; 74176; 80053; 81001; 81003; 83605; 85025; 87040; 87086; 51702; 87088; 87186; 96361; 96365; 96366; 96367; 99222; 99232; 99239; 99284; 99285-25; A9270-GY; G0378; J0692; J0696; J3490; J7030; J7040; J7620-GY

== ENCOUNTER 2024-01-27 17:11 | Emergency (ER) | payer OTHER ==
[2024-01-27 18:31] LABS: APPEARANCE,URINE CLOUDY; BILIRUBIN,URINE NEGATIVE (NEGATIVE); COLOR,URINE RED; GLUCOSE,URINE NEGATIVE (NEGATIVE); KETONES,URINE NEGATIVE (NEGATIVE); LEUKOCYTE ESTERASE,URINE NEGATIVE (NEGATIVE); NITRITE,URINE NEGATIVE (NEGATIVE); OCCULT BLOOD,URINE LARGE (NEGATIVE); PROTEIN,URINE 100 mg/dL (NEGATIVE); UROBILINOGEN,URINE 0.2 EU/dL (<2.0)
[2024-01-27 18:32] LABS: BASOPHILS ABSOLUTE AUTO 0.09 K/uL (0.00-0.20); BASOPHILS PERCENT AUTO 0.8 % (0.0-1.0); EOSINOPHILS PERCENT AUTO 5.9 % (0.0-6.0); HEMATOCRIT 37.7 % (42.0-52.0); HEMOGLOBIN 12.5 g/dL (14.0-18.0); IMMATURE GRAN ABSOLUTE AUTO 0.03 K/uL (0.00-0.05); IMMATURE GRAN PERCENT AUTO 0.3 % (0.0-0.4); LYMPHOCYTES ABSOLUTE AUTO 2.91 K/uL (1.00-4.80); LYMPHOCYTES PERCENT AUTO 24.4 % (24.0-44.0); MEAN CORPUSCULAR HEMOGLOBIN 31.1 pg (28.0-32.0); MEAN CORPUSCULAR HGB CONC 33.2 g/dL (32.0-36.0); MEAN CORPUSCULAR VOLUME 93.8 fL (83.0-99.0); MEAN PLATELET VOLUME 11.1 fL (9.4-12.4); MONOCYTES ABSOLUTE AUTO 0.67 K/uL (0.00-0.80); MONOCYTES PERCENT AUTO 5.6 % (0.0-8.0); NEUTROPHILS ABSOLUTE AUTO 7.53 K/uL (1.80-7.70); PLATELET COUNT,PLT 275 K/uL (150-400); RED BLOOD CELL COUNT 4.02 M/uL (4.52-5.90); WHITE BLOOD CELL COUNT,WBC 11.93 K/uL (3.9-11.3)
[2024-01-27 18:34] LABS: BACTERIA,URINE FEW (NEGATIVE); EPITHELIAL CELLS,URINE NOT SEEN (NONE-FEW); MUCUS,URINE NOT SEEN (NONE-MOD); RBC,URINE TOO NUMEROUS TO CT (0-2/HPF); WBC,URINE 0-2 (0-5/HPF)
[2024-01-27 18:56] LABS: A/G RATIO 0.8 (0.9-1.6); ALBUMIN 3.3 g/dL (3.4-5.0); BILIRUBIN TOTAL 0.4 mg/dL (0.2-1.0); EST CRCL DRUG DOSING (CG) 58.81 mL/min; INR 0.98 (0.86-1.11); POTASSIUM,K 4.2 mmol/L (3.5-5.1); PROTEIN TOTAL,TP 7.4 g/dL (6.4-8.2)
[2024-01-27] MEDS ORDERED: Lidocaine 2% Viscous Solution 15 ML UD ONE (23:50)
[2024-01-28 02:02] VITALS: PULSE 76
[2024-01-28 04:36] VITALS: BP 124/82
== END 2024-01-28 10:09 ==
LOC: MW.ED 17:11
DX: R31.9 Hematuria, unspecified (principal); I11.0 Hypertensive heart disease with heart failure; I50.9 Heart failure, unspecified; Z79.899 Other long term (current) drug therapy; Z75.8 Other problems related to medical facilities and other health care
CPT/HCPCS: 36415; 51700; 51702; 80053; 81001; 85025; 85610; 99284; 99285

== ENCOUNTER 2024-05-03 17:09 | Emergency (ER) | payer OTHER, MEDICARE ==
[2024-05-03] MEDS ORDERED: Sodium Chloride 0.9% 10 ML Syringe FLUSH PRN (17:20)
[2024-05-03 17:58] LABS: BASOPHILS ABSOLUTE AUTO 0.08 K/uL (0.00-0.20); BASOPHILS PERCENT AUTO 0.8 % (0.0-1.0); EOSINOPHILS ABSOLUTE AUTO 0.89 K/uL (0.00-0.45); EOSINOPHILS PERCENT AUTO 8.7 % (0.0-6.0); HEMATOCRIT 37.6 % (42.0-52.0); HEMOGLOBIN 12.2 g/dL (14.0-18.0); IMMATURE GRAN ABSOLUTE AUTO 0.02 K/uL (0.00-0.05); IMMATURE GRAN PERCENT AUTO 0.2 % (0.0-0.4); LYMPHOCYTES ABSOLUTE AUTO 2.71 K/uL (1.00-4.80); LYMPHOCYTES PERCENT AUTO 26.5 % (24.0-44.0); MEAN CORPUSCULAR HEMOGLOBIN 29.5 pg (28.0-32.0); MEAN CORPUSCULAR HGB CONC 32.4 g/dL (32.0-36.0); MEAN PLATELET VOLUME 10.6 fL (9.4-12.4); MONOCYTES ABSOLUTE AUTO 0.98 K/uL (0.00-0.80); MONOCYTES PERCENT AUTO 9.6 % (0.0-8.0); NEUTROPHILS ABSOLUTE AUTO 5.56 K/uL (1.80-7.70); NEUTROPHILS PERCENT AUTO 54.2 % (41.0-71.0); PLATELET COUNT,PLT 263 K/uL (150-400); RED BLOOD CELL COUNT 4.13 M/uL (4.52-5.90); WHITE BLOOD CELL COUNT,WBC 10.24 K/uL (3.9-11.3)
[2024-05-03] MEDS: Ondansetron 4 MG/2 ML SDV IVPUSH ONE (18:05)
[2024-05-03] MEDS: Morphine 2 MG/ML SYRINGE IVPUSH ONE (18:05)
[2024-05-03 18:32] LABS: A/G RATIO 0.7 (0.9-1.6); ALBUMIN 3.3 g/dL (3.4-5.0); BILIRUBIN TOTAL 0.3 mg/dL (0.2-1.0); CARBON DIOXIDE,CO2 31.8 mmol/L (21.0-32.0); CREATININE 1.3 mg/dL (0.8-1.3); EST CRCL DRUG DOSING (CG) 44.46 mL/min
[2024-05-03 18:55] LABS: APPEARANCE,URINE CLOUDY; BILIRUBIN,URINE NEGATIVE (NEGATIVE); GLUCOSE,URINE NEGATIVE (NEGATIVE); KETONES,URINE NEGATIVE (NEGATIVE); LEUKOCYTE ESTERASE,URINE MODERATE (NEGATIVE); NITRITE,URINE POSITIVE (NEGATIVE); OCCULT BLOOD,URINE LARGE (NEGATIVE); PH,URINE 8.5 (5.0-8.0); PROTEIN,URINE 100 mg/dL (NEGATIVE); UROBILINOGEN,URINE 0.2 EU/dL (<2.0)
[2024-05-03 18:59] LABS: COLOR,URINE RED
[2024-05-03] MEDS ORDERED: cefTRIAXone 2 GM in Sodium Chloride 0.9% 50 ML IV ONE (19:00)
[2024-05-03 19:06] LABS: BACTERIA,URINE 3+ (NEGATIVE); EPITHELIAL CELLS,URINE NOT SEEN (NONE-FEW); RBC,URINE 75-100 (0-2/HPF); WBC,URINE 15-20 (0-5/HPF)
[2024-05-03 19:07] LABS: MUCUS,URINE LIGHT (NONE-MOD)
[2024-05-03 22:59] VITALS: BP 153/77; PULSE 96
== END 2024-05-03 20:06 | disposition home or self-care (01) ==
LOC: MW.ED 17:09
DX: T83.011A Breakdown (mechanical) of indwelling urethral catheter, initial encounter (principal); I11.0 Hypertensive heart disease with heart failure; I50.9 Heart failure, unspecified; N30.01 Acute cystitis with hematuria; R77.9 Abnormality of plasma protein, unspecified; R30.0 Dysuria; R10.30 Lower abdominal pain, unspecified; Z79.899 Other long term (current) drug therapy
CPT/HCPCS: 36415; 51702; 80053; 81001; 83605; 85025; 87040; 99284

== ENCOUNTER 2024-06-01 07:46 | Emergency (ER) | payer OTHER, MEDICARE ==
[2024-06-01 07:50] VITALS: PULSE 79
[2024-06-01] MEDS ORDERED: Sodium Chloride 0.9% 10 ML Syringe FLUSH PRN (08:01)
[2024-06-01 09:15] LABS: BASOPHILS ABSOLUTE AUTO 0.09 K/uL (0.00-0.20); EOSINOPHILS ABSOLUTE AUTO 1.09 K/uL (0.00-0.45); EOSINOPHILS PERCENT AUTO 12.5 % (0.0-6.0); HEMOGLOBIN 12.8 g/dL (14.0-18.0); IMMATURE GRAN ABSOLUTE AUTO 0.01 K/uL (0.00-0.05); IMMATURE GRAN PERCENT AUTO 0.1 % (0.0-0.4); LYMPHOCYTES ABSOLUTE AUTO 2.38 K/uL (1.00-4.80); LYMPHOCYTES PERCENT AUTO 27.2 % (24.0-44.0); MEAN CORPUSCULAR HEMOGLOBIN 29.6 pg (28.0-32.0); MEAN CORPUSCULAR HGB CONC 32.8 g/dL (32.0-36.0); MEAN CORPUSCULAR VOLUME 90.3 fL (83.0-99.0); MEAN PLATELET VOLUME 11.2 fL (9.4-12.4); MONOCYTES ABSOLUTE AUTO 0.79 K/uL (0.00-0.80); NEUTROPHILS ABSOLUTE AUTO 4.38 K/uL (1.80-7.70); NEUTROPHILS PERCENT AUTO 50.2 % (41.0-71.0); NRBC ABSOLUTE 0.02 K/uL (0.00-0.02); NRBC PERCENT 0.2 /100WBC (0.0-0.2); PLATELET COUNT,PLT 213 K/uL (150-400); RED BLOOD CELL COUNT 4.32 M/uL (4.52-5.90); WHITE BLOOD CELL COUNT,WBC 8.74 K/uL (3.9-11.3)
[2024-06-01 09:27] LABS: INR 1.04 (0.86-1.11)
[2024-06-01 09:41] LABS: A/G RATIO 0.8 (0.9-1.6); ALBUMIN 3.3 g/dL (3.4-5.0); BILIRUBIN TOTAL 0.5 mg/dL (0.2-1.0); CALCIUM 10.3 mg/dL (8.5-10.1); CARBON DIOXIDE,CO2 32.6 mmol/L (21.0-32.0); CREATININE 1.2 mg/dL (0.8-1.3); EST CRCL DRUG DOSING (CG) 48.16 mL/min; POTASSIUM,K 4.7 mmol/L (3.5-5.1); PROTEIN TOTAL,TP 7.5 g/dL (6.4-8.2)
[2024-06-01 09:56] LABS: APPEARANCE,URINE CLOUDY; BILIRUBIN,URINE NEGATIVE (NEGATIVE); COLOR,URINE RED; GLUCOSE,URINE NEGATIVE (NEGATIVE); KETONES,URINE NEGATIVE (NEGATIVE); LEUKOCYTE ESTERASE,URINE SMALL (NEGATIVE); NITRITE,URINE POSITIVE (NEGATIVE); OCCULT BLOOD,URINE LARGE (NEGATIVE); PH,URINE 8.5 (5.0-8.0); PROTEIN,URINE 100 mg/dL (NEGATIVE)
[2024-06-01 09:57] LABS: RBC,URINE TOO NUMEROUS TO CT (0-2/HPF)
[2024-06-01 09:58] LABS: BACTERIA,URINE RARE (NEGATIVE); EPITHELIAL CELLS,URINE RARE (NONE-FEW)
[2024-06-01] MEDS: cefTRIAXone 2 GM in Sodium Chloride 0.9% 50 ML IV ONE (10:18)
[2024-06-01 10:55] VITALS: BP 162/75
== END 2024-06-01 10:54 | disposition home or self-care (01) ==
LOC: MW.ED 07:46
DX: N30.01 Acute cystitis with hematuria (principal); R33.9 Retention of urine, unspecified; I11.0 Hypertensive heart disease with heart failure; I50.9 Heart failure, unspecified; Z79.899 Other long term (current) drug therapy; Z75.8 Other problems related to medical facilities and other health care; Z96.0 Presence of urogenital implants
CPT/HCPCS: 36415; 51702; 80053; 81001; 85025; 85610; 96365; 99284; J0696; J3490; 99283

== ENCOUNTER 2024-06-04 19:59 | Inpatient (IN) | payer OTHER, MEDICARE ==
[2024-06-04] MEDS ORDERED: Sodium Chloride 0.9% 10 ML Syringe FLUSH PRN (20:05)
[2024-06-04] MEDS ORDERED: Sodium Chloride 0.9% 2.5 ML Syringe FLUSH PRN (20:05)
[2024-06-04 20:12] LABS: HEMATOCRIT 37.5 % (42.0-52.0); HEMOGLOBIN 12.5 g/dL (14.0-18.0); MEAN CORPUSCULAR HGB CONC 33.3 g/dL (32.0-36.0); MEAN CORPUSCULAR VOLUME 90.1 fL (83.0-99.0); MEAN PLATELET VOLUME 11.7 fL (9.4-12.4); PLATELET COUNT,PLT 164 K/uL (150-400); RED BLOOD CELL COUNT 4.16 M/uL (4.52-5.90); WHITE BLOOD CELL COUNT,WBC 18.31 K/uL (3.9-11.3)
[2024-06-04 20:29] LABS: INR 1.13 (0.86-1.11); PTT,PARTIAL THROMBOPLSTIN TIME 31.9 SEC (23.9-30.7)
[2024-06-04 20:31] LABS: BASE EXCESS VENOUS 3.6 (-2.0-3.0); PH,VENOUS 7.46 (7.31-7.41)
[2024-06-04] MEDS: Sodium Chloride 0.9% 500 ML IV SCH (20:32)
[2024-06-04] MEDS: cefTRIAXone 1 GM in Sodium Chloride 0.9% 50 ML IV ONE (20:32)
[2024-06-04] MEDS: Acetaminophen 500 MG Tab PO ONE (20:33)
[2024-06-04 20:38] LABS: A/G RATIO 0.7 (0.9-1.6); ALBUMIN 3.1 g/dL (3.4-5.0); BILIRUBIN TOTAL 0.6 mg/dL (0.2-1.0); CALCIUM 9.6 mg/dL (8.5-10.1); CARBON DIOXIDE,CO2 27.8 mmol/L (21.0-32.0); CREATININE 1.5 mg/dL (0.8-1.3); EST CRCL DRUG DOSING (CG) 38.53 mL/min; POTASSIUM,K 3.8 mmol/L (3.5-5.1); PROTEIN TOTAL,TP 7.5 g/dL (6.4-8.2)
[2024-06-04 21:06] LABS: BAND ABSOLUTE MAN 0.37; BAND PERCENT MAN 2 %; LYMPHOCYTES ABSOLUTE MAN 3.85 K/uL (1.00-4.80); LYMPHOCYTES PERCENT MAN 21 % (24-44); SEG NEUTROPHILS PERCENT MAN 71 % (41-71)
[2024-06-04 21:07] LABS: MONOCYTES PERCENT MAN 6 % (0-8)
[2024-06-04 22:32] LABS: BILIRUBIN,URINE NEGATIVE (NEGATIVE); COLOR,URINE YELLOW; GLUCOSE,URINE NEGATIVE (NEGATIVE); KETONES,URINE NEGATIVE (NEGATIVE); LEUKOCYTE ESTERASE,URINE TRACE (NEGATIVE); NITRITE,URINE NEGATIVE (NEGATIVE); OCCULT BLOOD,URINE SMALL (NEGATIVE); PROTEIN,URINE NEGATIVE (NEGATIVE); UROBILINOGEN,URINE 0.2 EU/dL (<2.0)
[2024-06-04 22:38] LABS: APPEARANCE,URINE HAZY
[2024-06-04 22:43] LABS: BACTERIA,URINE FEW (NEGATIVE); EPITHELIAL CELLS,URINE RARE (NONE-FEW); YEAST,URINE OCCASIONAL
[2024-06-04 23:14] LABS: CORONAVIRUS COVID-19 NAA NEGATIVE (NEGATIVE); INFLUENZA A NAA NEGATIVE (NEGATIVE); INFLUENZA B NAA NEGATIVE (NEGATIVE)
[2024-06-05] MEDS ORDERED: Acetaminophen 325 MG Tab PO PRN (03:05)
[2024-06-05 05:31] LABS: HEMATOCRIT 34.7 % (42.0-52.0); HEMOGLOBIN 11.3 g/dL (14.0-18.0); MEAN CORPUSCULAR HEMOGLOBIN 29.8 pg (28.0-32.0); MEAN CORPUSCULAR HGB CONC 32.6 g/dL (32.0-36.0); MEAN CORPUSCULAR VOLUME 91.6 fL (83.0-99.0); MEAN PLATELET VOLUME 11.5 fL (9.4-12.4); PLATELET COUNT,PLT 155 K/uL (150-400); RED BLOOD CELL COUNT 3.79 M/uL (4.52-5.90); WHITE BLOOD CELL COUNT,WBC 18.03 K/uL (3.9-11.3)
[2024-06-05 06:43] LABS: BASOPHILS ABSOLUTE MAN 0.18 K/uL (0.00-0.20); BASOPHILS PERCENT MAN 1 % (0-1); LYMPHOCYTES ABSOLUTE MAN 2.52 K/uL (1.00-4.80); LYMPHOCYTES PERCENT MAN 14 % (24-44); MONOCYTES ABSOLUTE MAN 2.16 K/uL (0.00-0.80); MONOCYTES PERCENT MAN 12 % (0-8); SEG NEUTROPHILS ABSOLUTE MAN 13.16 K/uL (1.80-7.70); SEG NEUTROPHILS PERCENT MAN 73 % (41-71)
[2024-06-05] MEDS ORDERED: Polyethylene Glycol 3350 Powder 17 GM Packet PO PRN (08:03)
[2024-06-05] MEDS ORDERED: Sodium Chloride 0.9% 2.5 ML Syringe FLUSH PRN (08:03)
[2024-06-05] MEDS ORDERED: Docusate Sodium 100 MG Cap PO PRN (08:03)
[2024-06-05] MEDS ORDERED: Ondansetron 4 MG/2 ML SDV IVPUSH PRN (08:03)
[2024-06-05] MEDS ORDERED: Sodium Chloride 0.9% 10 ML Syringe FLUSH PRN (08:03)
[2024-06-05] MEDS: Metoprolol Succinate 50 MG Tab.ER PO SCH (09:14)
[2024-06-05] MEDS: metroNIDAZOLE/Normal Saline 500 MG in Premix Bag 1 BAG IV SCH (13:56)
[2024-06-05] MEDS: cefTRIAXone 2 GM in Sodium Chloride 0.9% 50 ML IV SCH (20:21)
[2024-06-06] MEDS: Cefepime 2 GM in Sodium Chloride 0.9% 50 ML IV SCH (03:47)
[2024-06-06] MEDS: Cefepime 1 GM in Sodium Chloride 0.9% 50 ML IV SCH (03:53)
[2024-06-06 05:31] LABS: BASOPHILS ABSOLUTE AUTO 0.04 K/uL (0.00-0.20); BASOPHILS PERCENT AUTO 0.4 % (0.0-1.0); EOSINOPHILS ABSOLUTE AUTO 0.54 K/uL (0.00-0.45); EOSINOPHILS PERCENT AUTO 4.8 % (0.0-6.0); HEMATOCRIT 34.6 % (42.0-52.0); HEMOGLOBIN 11.2 g/dL (14.0-18.0); IMMATURE GRAN ABSOLUTE AUTO 0.03 K/uL (0.00-0.05); IMMATURE GRAN PERCENT AUTO 0.3 % (0.0-0.4); LYMPHOCYTES ABSOLUTE AUTO 1.92 K/uL (1.00-4.80); LYMPHOCYTES PERCENT AUTO 17.1 % (24.0-44.0); MEAN CORPUSCULAR HEMOGLOBIN 29.3 pg (28.0-32.0); MEAN CORPUSCULAR HGB CONC 32.4 g/dL (32.0-36.0); MEAN CORPUSCULAR VOLUME 90.6 fL (83.0-99.0); MEAN PLATELET VOLUME 11.9 fL (9.4-12.4); MONOCYTES ABSOLUTE AUTO 1.42 K/uL (0.00-0.80); MONOCYTES PERCENT AUTO 12.7 % (0.0-8.0); NEUTROPHILS ABSOLUTE AUTO 7.26 K/uL (1.80-7.70); NEUTROPHILS PERCENT AUTO 64.7 % (41.0-71.0); PLATELET COUNT,PLT 158 K/uL (150-400); RED BLOOD CELL COUNT 3.82 M/uL (4.52-5.90); WHITE BLOOD CELL COUNT,WBC 11.21 K/uL (3.9-11.3)
[2024-06-06 05:48] LABS: CALCIUM 9.4 mg/dL (8.5-10.1); CARBON DIOXIDE,CO2 28.7 mmol/L (21.0-32.0); CREATININE 1.1 mg/dL (0.8-1.3); EST CRCL DRUG DOSING (CG) 52.54 mL/min; MAGNESIUM 2.1 mg/dL (1.8-2.4); POTASSIUM,K 3.9 mmol/L (3.5-5.1)
[2024-06-06 09:02] LABS: BORDETELLA PARAPERT IS1001 Not Detected (Not Detected)
[2024-06-07] MEDS: Albuterol/Ipratropium 3.0-0.5 MG/3 ML Neb Soln NEB PRN (02:34)
[2024-06-07 07:57] LABS: BASOPHILS ABSOLUTE AUTO 0.07 K/uL (0.00-0.20); BASOPHILS PERCENT AUTO 0.7 % (0.0-1.0); EOSINOPHILS ABSOLUTE AUTO 0.89 K/uL (0.00-0.45); EOSINOPHILS PERCENT AUTO 9.3 % (0.0-6.0); HEMATOCRIT 34.4 % (42.0-52.0); HEMOGLOBIN 11.5 g/dL (14.0-18.0); IMMATURE GRAN ABSOLUTE AUTO 0.03 K/uL (0.00-0.05); IMMATURE GRAN PERCENT AUTO 0.3 % (0.0-0.4); LYMPHOCYTES ABSOLUTE AUTO 2.17 K/uL (1.00-4.80); LYMPHOCYTES PERCENT AUTO 22.8 % (24.0-44.0); MEAN CORPUSCULAR HEMOGLOBIN 29.9 pg (28.0-32.0); MEAN CORPUSCULAR HGB CONC 33.4 g/dL (32.0-36.0); MEAN CORPUSCULAR VOLUME 89.6 fL (83.0-99.0); MEAN PLATELET VOLUME 11.5 fL (9.4-12.4); MONOCYTES ABSOLUTE AUTO 1.15 K/uL (0.00-0.80); MONOCYTES PERCENT AUTO 12.1 % (0.0-8.0); NEUTROPHILS ABSOLUTE AUTO 5.21 K/uL (1.80-7.70); NEUTROPHILS PERCENT AUTO 54.8 % (41.0-71.0); PLATELET COUNT,PLT 188 K/uL (150-400); RED BLOOD CELL COUNT 3.84 M/uL (4.52-5.90); WHITE BLOOD CELL COUNT,WBC 9.52 K/uL (3.9-11.3)
[2024-06-07 08:26] LABS: A/G RATIO 0.6 (0.9-1.6); ALBUMIN 2.5 g/dL (3.4-5.0); BILIRUBIN TOTAL 0.4 mg/dL (0.2-1.0); CALCIUM 9.4 mg/dL (8.5-10.1); CARBON DIOXIDE,CO2 26.2 mmol/L (21.0-32.0); CREATININE 1.1 mg/dL (0.8-1.3); EST CRCL DRUG DOSING (CG) 52.54 mL/min; POTASSIUM,K 4.3 mmol/L (3.5-5.1); PROTEIN TOTAL,TP 6.6 g/dL (6.4-8.2)
[2024-06-07] MEDS: Furosemide 40 MG Tab PO SCH (09:29)
[2024-06-07] MEDS: Cefepime 2 GM in Sodium Chloride 0.9% 50 ML IV SCH (14:51)
[2024-06-08 05:52] LABS: BASOPHILS ABSOLUTE AUTO 0.07 K/uL (0.00-0.20); BASOPHILS PERCENT AUTO 0.8 % (0.0-1.0); EOSINOPHILS ABSOLUTE AUTO 1.05 K/uL (0.00-0.45); HEMATOCRIT 35.3 % (42.0-52.0); HEMOGLOBIN 11.7 g/dL (14.0-18.0); IMMATURE GRAN ABSOLUTE AUTO 0.03 K/uL (0.00-0.05); IMMATURE GRAN PERCENT AUTO 0.3 % (0.0-0.4); LYMPHOCYTES ABSOLUTE AUTO 2.13 K/uL (1.00-4.80); LYMPHOCYTES PERCENT AUTO 24.3 % (24.0-44.0); MEAN CORPUSCULAR HEMOGLOBIN 29.8 pg (28.0-32.0); MEAN CORPUSCULAR HGB CONC 33.1 g/dL (32.0-36.0); MEAN CORPUSCULAR VOLUME 90.1 fL (83.0-99.0); MEAN PLATELET VOLUME 11.4 fL (9.4-12.4); MONOCYTES ABSOLUTE AUTO 1.01 K/uL (0.00-0.80); MONOCYTES PERCENT AUTO 11.5 % (0.0-8.0); NEUTROPHILS ABSOLUTE AUTO 4.46 K/uL (1.80-7.70); NEUTROPHILS PERCENT AUTO 51.1 % (41.0-71.0); PLATELET COUNT,PLT 219 K/uL (150-400); RED BLOOD CELL COUNT 3.92 M/uL (4.52-5.90); WHITE BLOOD CELL COUNT,WBC 8.75 K/uL (3.9-11.3)
[2024-06-08 06:18] LABS: A/G RATIO 0.6 (0.9-1.6); ALBUMIN 2.6 g/dL (3.4-5.0); BILIRUBIN TOTAL 0.6 mg/dL (0.2-1.0); CALCIUM 9.7 mg/dL (8.5-10.1); CARBON DIOXIDE,CO2 29.2 mmol/L (21.0-32.0); CREATININE 1.1 mg/dL (0.8-1.3); EST CRCL DRUG DOSING (CG) 52.54 mL/min; POTASSIUM,K 4.4 mmol/L (3.5-5.1); PROTEIN TOTAL,TP 6.8 g/dL (6.4-8.2)
[2024-06-09 06:41] LABS: BASOPHILS ABSOLUTE AUTO 0.09 K/uL (0.00-0.20); BASOPHILS PERCENT AUTO 0.9 % (0.0-1.0); EOSINOPHILS ABSOLUTE AUTO 0.98 K/uL (0.00-0.45); EOSINOPHILS PERCENT AUTO 9.8 % (0.0-6.0); HEMATOCRIT 37.4 % (42.0-52.0); HEMOGLOBIN 12.2 g/dL (14.0-18.0); IMMATURE GRAN ABSOLUTE AUTO 0.12 K/uL (0.00-0.05); IMMATURE GRAN PERCENT AUTO 1.2 % (0.0-0.4); LYMPHOCYTES ABSOLUTE AUTO 2.38 K/uL (1.00-4.80); LYMPHOCYTES PERCENT AUTO 23.9 % (24.0-44.0); MEAN CORPUSCULAR HEMOGLOBIN 29.5 pg (28.0-32.0); MEAN CORPUSCULAR HGB CONC 32.6 g/dL (32.0-36.0); MEAN CORPUSCULAR VOLUME 90.6 fL (83.0-99.0); MEAN PLATELET VOLUME 11.4 fL (9.4-12.4); MONOCYTES ABSOLUTE AUTO 1.13 K/uL (0.00-0.80); MONOCYTES PERCENT AUTO 11.4 % (0.0-8.0); NEUTROPHILS ABSOLUTE AUTO 5.25 K/uL (1.80-7.70); NEUTROPHILS PERCENT AUTO 52.8 % (41.0-71.0); PLATELET COUNT,PLT 243 K/uL (150-400); RED BLOOD CELL COUNT 4.13 M/uL (4.52-5.90); WHITE BLOOD CELL COUNT,WBC 9.95 K/uL (3.9-11.3)
[2024-06-09 07:00] LABS: A/G RATIO 0.6 (0.9-1.6); ALBUMIN 2.5 g/dL (3.4-5.0); BILIRUBIN TOTAL 0.4 mg/dL (0.2-1.0); CALCIUM 9.6 mg/dL (8.5-10.1); CARBON DIOXIDE,CO2 28.6 mmol/L (21.0-32.0); CREATININE 1.1 mg/dL (0.8-1.3); EST CRCL DRUG DOSING (CG) 52.54 mL/min; POTASSIUM,K 4.5 mmol/L (3.5-5.1); PROTEIN TOTAL,TP 6.7 g/dL (6.4-8.2)
[2024-06-10 07:18] LABS: EOSINOPHILS ABSOLUTE AUTO 1.07 K/uL (0.00-0.45); HEMATOCRIT 36.5 % (42.0-52.0); HEMOGLOBIN 11.8 g/dL (14.0-18.0); IMMATURE GRAN ABSOLUTE AUTO 0.12 K/uL (0.00-0.05); IMMATURE GRAN PERCENT AUTO 1.2 % (0.0-0.4); LYMPHOCYTES ABSOLUTE AUTO 2.38 K/uL (1.00-4.80); LYMPHOCYTES PERCENT AUTO 24.4 % (24.0-44.0); MEAN CORPUSCULAR HEMOGLOBIN 29.1 pg (28.0-32.0); MEAN CORPUSCULAR HGB CONC 32.3 g/dL (32.0-36.0); MEAN CORPUSCULAR VOLUME 90.1 fL (83.0-99.0); MEAN PLATELET VOLUME 11.3 fL (9.4-12.4); MONOCYTES ABSOLUTE AUTO 1.02 K/uL (0.00-0.80); MONOCYTES PERCENT AUTO 10.4 % (0.0-8.0); NEUTROPHILS ABSOLUTE AUTO 5.08 K/uL (1.80-7.70); PLATELET COUNT,PLT 276 K/uL (150-400); RED BLOOD CELL COUNT 4.05 M/uL (4.52-5.90); WHITE BLOOD CELL COUNT,WBC 9.77 K/uL (3.9-11.3)
[2024-06-10 07:43] LABS: A/G RATIO 0.6 (0.9-1.6); ALBUMIN 2.5 g/dL (3.4-5.0); BILIRUBIN TOTAL 0.3 mg/dL (0.2-1.0); CALCIUM 9.6 mg/dL (8.5-10.1); CARBON DIOXIDE,CO2 27.6 mmol/L (21.0-32.0); CREATININE 1.1 mg/dL (0.8-1.3); EST CRCL DRUG DOSING (CG) 52.54 mL/min; POTASSIUM,K 4.3 mmol/L (3.5-5.1); PROTEIN TOTAL,TP 6.6 g/dL (6.4-8.2)
[2024-06-10 12:30] VITALS: BP 123/58; PULSE 77
== END 2024-06-10 14:45 | disposition home or self-care (01) | DRG 699 ==
LOC: MW.ED 19:59 → MW.MS 23:39 → OBSVTOIN 23:39 → EEVIPCON 23:39
PROVIDERS: ADMIT Internal Medicine; ATTEND Internal Medicine
DX: T83.511A Infection and inflammatory reaction due to indwelling urethral catheter, initial encounter (principal); I50.32 Chronic diastolic (congestive) heart failure; I50.9 Heart failure, unspecified; N30.01 Acute cystitis with hematuria; I11.0 Hypertensive heart disease with heart failure; H54.7 Unspecified visual loss; H91.90 Unspecified hearing loss, unspecified ear; K21.9 Gastro-esophageal reflux disease without esophagitis; M1A.0720 Idiopathic chronic gout, left ankle and foot, without tophus (tophi); K42.9 Umbilical hernia without obstruction or gangrene; D72.829 Elevated white blood cell count, unspecified; I95.9 Hypotension, unspecified; Z90.89 Acquired absence of other organs; Z79.899 Other long term (current) drug therapy; Z87.891 Personal history of nicotine dependence; Z96.641 Presence of right artificial hip joint; Z96.642 Presence of left artificial hip joint; W01.0XXA Fall on same level from slipping, tripping and stumbling without subsequent striking against object, initial encounter; Y92.009 Unspecified place in unspecified non-institutional (private) residence as the place of occurrence of the external cause
CPT/HCPCS: 0240U; 36415; 51798; 70450; 71045; 71250; 74176; 80048; 80053; 81001; 82803; 83605; 83735; 83880; 84484; 85025; 85610; 85730; 87040; 87077; 87086; 87154; 87186; 87486; 87581; 87633; 93005; 96365; 97161; 97165; 99285; 93010; 99283; A9270-GY; G0378; J0692; J0696; J1836; J3490; J7040; J7620-GY

== ENCOUNTER 2024-08-16 20:33 | Emergency (ER) | payer OTHER, MEDICARE ==
[2024-08-16 20:56] VITALS: PULSE 92
[2024-08-16 22:21] VITALS: BP 148/70
== END 2024-08-16 22:22 | disposition home or self-care (01) ==
LOC: MW.ED 20:33
DX: T83.9XXA Unspecified complication of genitourinary prosthetic device, implant and graft, initial encounter (principal); Z75.8 Other problems related to medical facilities and other health care; I11.0 Hypertensive heart disease with heart failure; I50.9 Heart failure, unspecified; K21.9 Gastro-esophageal reflux disease without esophagitis; Z79.899 Other long term (current) drug therapy
CPT/HCPCS: 51702; 99283; 99284

== ENCOUNTER 2024-09-30 15:10 | Emergency (ER) | payer OTHER ==
[2024-09-30 18:12] LABS: APPEARANCE,URINE CLOUDY; BILIRUBIN,URINE NEGATIVE; COLOR,URINE YELLOW; GLUCOSE,URINE NEGATIVE; LEUKOCYTE ESTERASE,URINE TRACE (NEGATIVE); NITRITE,URINE NEGATIVE (NEGATIVE); OCCULT BLOOD,URINE LARGE; PROTEIN,URINE TRACE; UROBILINOGEN,URINE 0.2 (<1.0)
[2024-09-30 18:13] LABS: BACTERIA,URINE 2+ (NEGATIVE); EPITHELIAL CELLS,URINE RARE (NONE-FEW); RBC,URINE TOO NUMEROUS TO CT (0-2/HPF)
[2024-09-30 18:17] LABS: KETONES,URINE NEGATIVE
[2024-09-30 18:45] VITALS: BP 140/79; PULSE 90
== END 2024-09-30 18:59 | disposition home or self-care (01) ==
LOC: MW.ED 15:10
DX: T83.091A Other mechanical complication of indwelling urethral catheter, initial encounter (principal); I11.0 Hypertensive heart disease with heart failure; I50.9 Heart failure, unspecified; K21.9 Gastro-esophageal reflux disease without esophagitis; Z79.899 Other long term (current) drug therapy; Y73.2 Prosthetic and other implants, materials and accessory gastroenterology and urology devices associated with adverse incidents
CPT/HCPCS: 51702; 81001; 87086; 99284

== ENCOUNTER 2024-10-08 20:22 | Emergency (ER) | payer OTHER ==
[2024-10-08 21:35] VITALS: BP 141/28; PULSE 94
== END 2024-10-08 22:20 | disposition left against medical advice (07) ==
LOC: MW.ED 20:22
DX: T83.038A Leakage of other urinary catheter, initial encounter (principal); I11.0 Hypertensive heart disease with heart failure; I50.9 Heart failure, unspecified; K21.9 Gastro-esophageal reflux disease without esophagitis; Z75.8 Other problems related to medical facilities and other health care; Z79.899 Other long term (current) drug therapy; Y73.2 Prosthetic and other implants, materials and accessory gastroenterology and urology devices associated with adverse incidents
CPT/HCPCS: 51702; 99283

== ENCOUNTER 2025-06-24 13:56 | Emergency (ER) | payer MEDICARE, OTHER ==
[2025-06-24 14:39] LABS: BASOPHILS ABSOLUTE AUTO 0.07 K/uL (0.00-0.20); BASOPHILS PERCENT AUTO 0.7 % (0.0-1.0); EOSINOPHILS ABSOLUTE AUTO 0.46 K/uL (0.00-0.45); EOSINOPHILS PERCENT AUTO 4.6 % (0.0-6.0); IMMATURE GRAN ABSOLUTE AUTO 0.02 K/uL (0.00-0.05); IMMATURE GRAN PERCENT AUTO 0.2 % (0.0-0.4); LYMPHOCYTES ABSOLUTE AUTO 2.40 K/uL (1.00-4.80); LYMPHOCYTES PERCENT AUTO 24.2 % (24.0-44.0); MEAN PLATELET VOLUME 11.1 fL (9.4-12.4); MONOCYTES ABSOLUTE AUTO 1.01 K/uL (0.00-0.80); MONOCYTES PERCENT AUTO 10.2 % (0.0-8.0); NEUTROPHILS ABSOLUTE AUTO 5.95 K/uL (1.80-7.70); NEUTROPHILS PERCENT AUTO 60.1 % (41.0-71.0); NRBC ABSOLUTE 0.00 K/uL (0.00-0.02); NRBC PERCENT 0.0 /100WBC (0.0-0.2); PLATELET COUNT,PLT 254 K/uL (150-400); RED BLOOD CELL COUNT 4.52 M/uL (4.52-5.90); WHITE BLOOD CELL COUNT,WBC 9.91 K/uL (3.9-11.3)
[2025-06-24 14:57] LABS: BLOOD UREA NITROGEN,BUN 32.0 mg/dL (7.0-18.0); CARBON DIOXIDE,CO2 35.0 mmol/L (21.0-32.0); CHLORIDE,CL 97.0 mmol/L (98-107); CREATININE 1.3 mg/dL (0.8-1.3); EST CRCL DRUG DOSING (CG) 42.3 mL/min; GLUCOSE RANDOM 115.0 mg/dL (74-106); POTASSIUM,K 2.6 mmol/L (3.5-5.1); SODIUM,NA 140.0 mmol/L (136-148)
[2025-06-24 15:04] LABS: ESTIMATED GFR 54.0 mL/min (>60)
[2025-06-24] MEDS ORDERED: Potassium Chloride 20 MEQ in Premix Bag 1 BAG IV ONE (16:26)
[2025-06-24] MEDS: Potassium Chloride 20 MEQ Tab.ER PO ONE (16:54)
[2025-06-24] MEDS: Magnesium Citrate Solution 296 ML Bottle PO ONE (18:04)
[2025-06-24 20:13] VITALS: BP 131/70; PULSE 86
== END 2025-06-24 20:12 | disposition home or self-care (01) ==
LOC: MW.ED 13:56
DX: K59.00 Constipation, unspecified (principal); R10.84 Generalized abdominal pain; I11.0 Hypertensive heart disease with heart failure; I50.9 Heart failure, unspecified; K21.9 Gastro-esophageal reflux disease without esophagitis; Z79.899 Other long term (current) drug therapy
CPT/HCPCS: 36415; 74019; 80048; 83735; 85025; 99284; A9270; 99283